=== PATIENT | female | born 1940 | race African-American/Black ===

== ENCOUNTER → 2018-01-02 | Outpatient (CLI) | payer OTHER ==
--- NOTE | 2018-01-02 13:21 | RAD ---
Left shoulder, 3 views, 01/02/2018: History: Shoulder pain after a fall No recent fracture or dislocation is identified. There is mild spurring along the glenoid rim and at the AC joint. There is mild subacromial spurring. A small soft tissue calcification along the lateral margin of the greater tuberosity is probably of tendinous origin. IMPRESSION: 1. Degenerative change. 2. No acute bony abnormality is detected.
== END | disposition home or self-care (01) ==
LOC: PMG 11:54
PROVIDERS: ATTEND Nurse Practitioner Family
DX: M19.012 Primary osteoarthritis, left shoulder (principal); Z91.81 History of falling
CPT/HCPCS: 73030

== ENCOUNTER → 2019-01-06 | Outpatient (CLI) | payer MEDICARE ==
[~2019-01-06] MED LIST: AMIO200T4 PO; CARV6.253 PO; ESCI10TA2 PO; LISI10TA2 PO; LISI40TA PO; ONDA4TAB7 PO; PANT20TA3 PO; ROSU40TA21 PO; SIMV20TA3 PO; TICA90TA PO
--- NOTE | 2019-01-06 13:07 | RAD ---
Chest radiograph 01/06/2019 12:00 AM INDICATION: Chest pain, shortness of air COMPARISON: None available TECHNIQUE: Frontal and lateral views of the chest are provided. FINDINGS: The cardiomediastinal silhouette is borderline enlarged. There are no pleural effusions. There is no pulmonary vascular congestion. There is no pneumothorax. The lungs are clear. There is pulmonary emphysema. No focal airspace consolidation. No significant osseous abnormality is identified. IMPRESSION: Borderline cardiomegaly. COPD changes are present. No focal airspace consolidation. Electronically signed by: Aria Santos MD (01/06/2019 1:04 PM) [id number]
== END | disposition home or self-care (01) ==
LOC: RAD 12:50
PROVIDERS: ATTEND Physician Assistant
DX: J43.8 Other emphysema (principal)
CPT/HCPCS: 71046

== ENCOUNTER 2019-03-05 11:24 | Emergency (ER) | payer MEDICARE ==
[~2019-03-05] VITALS: Ht 165.1 cm; Wt 84.7 kg
[2019-03-05] MEDS ORDERED: IV NORMAL SALINE 1,000ML 1,000 ML IV SCH (11:31)
--- NOTE | 2019-03-05 11:36 | PHYS DOC ---
Past History Past Medical History: CAD, Cancer Past Surgical History: Other Additional Past Surgical Histo: cardiac stent Smoking: Non-smoker Alcohol Use: None Drug Use: None Adult General HPI HPI Patient is a 78-year-old female who presents with nausea and vomiting and upper abdominal pain for the past month. In the past month, patient has undergone at least 2 cardiac stenting procedures at [facility]. She was being seen by a physician upstairs in the office for this nausea and vomiting, it was noted that her blood pressure was in the 70s systolic. She was therefore sent down for further evaluation and treatment. Nothing seems to make the discomfort better or worse. She reports that the upper abdominal discomfort is the same discomfort as was present when she needed the cardiac stents. She denies any blood in the stool or emesis. Symptoms are moderate in intensity. She was recently diagnosed with breast cancer, has not started chemotherapy or radiation treatment.[] Review of Systems Review of Systems Constitutional: Denies fever or chills [] Eyes: Denies change in visual acuity, redness, or eye pain [] HENT: Denies nasal congestion or sore throat [] Respiratory: Denies cough or shortness of breath [] Cardiovascular: No additional information not addressed in HPI [] GI: See history of present illness[] : Denies dysuria or hematuria [] Musculoskeletal: Denies back pain or joint pain [] Integument: Denies rash or skin lesions [] Neurologic: Denies headache, focal weakness or sensory changes [] Endocrine: Denies polyuria or polydipsia [] All other systems were reviewed and found to be within normal limits, except as documented in this note. Physical Exam Physical Exam Constitutional: Well developed, well nourished, no acute distress, non-toxic a ppearance. [] HENT: Normocephalic, atraumatic, bilateral external ears normal, oropharynx moist, no oral exudates, nose normal. [] Eyes: PERRLA, EOMI, conjunctiva normal, no discharge. [] Neck: Normal range of motion, no tenderness, supple, no stridor. [] Cardiovascular:Heart rate regular rhythm, no murmur [] Lungs & Thorax: Bilateral breath sounds clear to auscultation [] Abdomen: Bowel sounds normal, soft, no tenderness, no masses, no pulsatile masses. [] Skin: Warm, dry, no erythema, no rash. [] Back: No tenderness, no CVA tenderness. [] Extremities: No tenderness, no cyanosis, no clubbing, ROM intact, no edema. [] Neurologic: Alert and oriented X 3, normal motor function, normal sensory function, no focal deficits noted. [] Psychologic: Affect normal, judgement normal, mood normal. [] EKG EKG EKG shows an irregular rhythm, no ST elevation. Rightward axis, QTC of 475 ms. No old EKG available for comparison. Interpreted by me at 1138 Repeat EKG showed a regular rhythm without any P-wave, left axis deviation, left anterior fascicular block along with a right bundle branch block, QTC was 519 ms. This was interpreted by me at 1225[] Radiology/Procedures Radiology/Procedures PROCEDURE: PORTABLE CHEST 1V Portable chest, 03/05/2019: HISTORY: Abdominal pain, coronary artery disease Comparison is made to a study from 01/06/2019. The heart is moderately enlarged. A coronary artery stent is projected over the upper heart on the left. Mild discoid atelectasis is present in the left parahilar region. Poor definition of portions of the left hemidiaphragm is probably due to the portable technique. No right lung infiltrate is seen. The pulmonary vascularity is normal. There is no evidence of pleural fluid. IMPRESSION: 1. Cardiomegaly. 2. Mild discoid atelectasis in the left midlung. PROCEDURE: KUB Portable abdomen, 03/05/2019: HISTORY: Abdominal pain, recent coronary artery stenting The abdominal gas pattern is unremarkable. There is no evidence of organomegaly. Lower pelvic calcifications are probably phleboliths. There are moderate scattered degenerative changes in the spine. IMPRESSION: No acute abdominal abnormality is detected.[] Course & Med Decision Making Course & Med Decision Making Pertinent Labs and Imaging studies reviewed. (See chart for details) ED course: Patient arrived, was placed in bed, and tolerated exam well. Patient's initial blood pressure for us was in the 120 systolic which decreased to the 100s. She was given IV fluids which again improved her blood pressure to the 140s systolic but dropped again to 114/78 as the IV fluids equilibrated. Her heart rate has remained in the 60s during this entire time. She was noted to have change in her ECG monitor with a widening of the QRS complex. Repeat EKG was obtained as noted above. Initial consultation was made with the hospitalist here at [facility] who felt that she would need higher level of care, cardiology services given her recent stenting. Contact was made with Dr. arana and Evans group out of [facility] who graciously accepted the patient. Family however, would be unable to get to and from [facility] and so consultation was again made with the hospitalist here at [facility] who accepted the patient for admission at [place]. Family is aware that it would be a different cardiology group evaluating patient. All patient's questions and family questions were answered. She was transferred in improved condition. Medical decision makin-year-old female with history of atrial fibrillation who is on apixaban, who also is having an intermittent bifascicular block on EKG/rhythm monitoring that is not mentioned on discussion with the cardiology group from [facility]. Patient has not had the profound hypotension that was noted in the family practice office upstairs. However her blood pressure does decrease when fluid boluses are complete. Currently waiting for a urinalysis given her recent admission. No other source of infection is identified at this time. Question If this is all due to infection. versus what components of this being a primary cardiology versus GI issue. There is no evidence of this being pancreatitis. No evidence of an obstruction. She is being admitted for further IV fluids and further evaluation[] Dragon Disclaimer Dragon Disclaimer This electronic medical record was generated, in whole or in part, using a voice recognition dictation system. Departure Departure: Impression: Primary Impression: Hypotensive episode Additional Impressions: Nausea and vomiting Atrial fibrillation Bifascicular block Coronary artery disease UTI (urinary tract infection) Disposition: 05 TRANSFER OTHER Admitting Physician: Ramy Almanza Condition: IMPROVED Referrals: KEO RIVAS (PCP) Problem Qualifiers Additional Impressions: Nausea and vomiting Vomiting type: unspecified Vomiting Intractability: non-intractable Qualified Codes: R11.2 - Nausea with vomiting, unspecified Atrial fibrillation Atrial fibrillation type: unspecified Qualified Codes: I48.91 - Unspecified atrial fibrillation Coronary artery disease Coronary Disease-Associated Artery/Lesion type: unspecified vessel or lesion type [place] vs. transplanted heart: [place] heart Associated angina: angina presence unspecified Qualified Codes: I25.10 - Atherosclerotic heart disease of [place] coronary artery without angina pectoris UTI (urinary tract infection) Urinary tract infection type: site unspecified Hematuria presence: with hematuria Qualified Codes: N39.0 - Urinary tract infection, site not specified; R31.9 - Hematuria, unspecified KALPESH YA DO March 05, 2019 11:36
[2019-03-05 11:46] LABS: BASO # 0.1 x10^3/uL (0.0-0.2); BASO % 1 % (0-3); EOS # 0.1 x10^3/uL (0.0-0.7); EOS % 2 % (0-3); HEMATOCRIT 40.4 % (36.0-47.0); HEMOGLOBIN 13.1 g/dL (12.0-15.5); LYMPH # 1.7 x10^3/uL (1.0-4.8); LYMPH % 21 % (24-48); MEAN CORPUSCULAR HEMOGLOBIN 27 pg (25-35); MEAN CORPUSCULAR HGB CONC 33 g/dL (31-37); MEAN CORPUSCULAR VOLUME 82 fL (79-100); MONO % 13 % (0-9); NEUT % 63 % (31-73); PLATELET COUNT 417 x10^3/uL (140-400); RED BLOOD COUNT 4.95 x10^6/uL (3.50-5.40); RED CELL DISTRIBUTION WIDTH 13.8 % (11.5-14.5); WHITE BLOOD COUNT 7.8 x10^3/uL (4.0-11.0)
[2019-03-05] MEDS ORDERED: ONDANSETRON PF 4 MG/2 ML VIAL. IV ONE (12:00)
[2019-03-05 12:08] LABS: ALBUMIN/GLOBULIN RATIO 0.6 (1.0-1.7); CALCIUM 9.5 mg/dL (8.5-10.1); CREATININE 1.3 mg/dL (0.6-1.0); GFR 47.8; POTASSIUM 3.6 mmol/L (3.5-5.1); TOTAL BILIRUBIN 1.1 mg/dL (0.2-1.0); TOTAL PROTEIN 7.7 g/dL (6.4-8.2)
--- NOTE | 2019-03-05 12:09 | RAD ---
Portable chest, 03/05/2019: HISTORY: Abdominal pain, coronary artery disease Comparison is made to a study from 01/06/2019. The heart is moderately enlarged. A coronary artery stent is projected over the upper heart on the left. Mild discoid atelectasis is present in the left parahilar region. Poor definition of portions of the left hemidiaphragm is probably due to the portable technique. No right lung infiltrate is seen. The pulmonary vascularity is normal. There is no evidence of pleural fluid. IMPRESSION: 1. Cardiomegaly. 2. Mild discoid atelectasis in the left midlung. Electronically signed by: Jef Marroquin MD (03/05/2019 12:06 PM) [facility]
--- NOTE | 2019-03-05 12:10 | RAD ---
Portable abdomen, 03/05/2019: HISTORY: Abdominal pain, recent coronary artery stenting The abdominal gas pattern is unremarkable. There is no evidence of organomegaly. Lower pelvic calcifications are probably phleboliths. There are moderate scattered degenerative changes in the spine. IMPRESSION: No acute abdominal abnormality is detected. Electronically signed by: Jef Marroquin MD (03/05/2019 12:07 PM) [facility]
--- NOTE | 2019-03-05 12:27 | EKG ---
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
[2019-03-05] MEDS ORDERED: IV NORMAL SALINE 1,000ML 1,000 ML IV ONE (13:45)
[2019-03-05 14:31] LABS: COLOR,URINE AMBER
[2019-03-05 14:32] LABS: AMORPHOUS SEDIMENT,UR PRESENT /HPF; BACTERIA,URINE MANY /HPF (0-FEW); BILIRUBIN,URINE NEG (NEG); CLARITY,URINE CLOUDY; GLUCOSE,URINE NEG (NEG); NITRITE,URINE NEG (NEG); SQUAMOUS EPITHELIAL CELL,UR FEW /LPF; UROBILINOGEN,URINE 4 mg/dL (0.2 mg/dL)
[2019-03-05] MEDS ORDERED: IV NORMAL SALINE 50ML 50 ML ONE (14:52)
[2019-03-05] MEDS ORDERED: cefTRIAXone SODIUM 1 GM VIAL ONE (14:52)
[2019-03-05 14:53] VITALS: BP 120/77
--- NOTE | 2019-03-08 06:35 | EKG ---
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
[2019-03-11] MEDS ORDERED: AMIO200T4 PO (14:52)
[2019-03-11] MEDS ORDERED: ONDA4TAB7 PO (15:00)
== END 2019-03-05 15:13 | disposition short-term general hospital (02) ==
LOC: ER 11:24
DX: N39.0 Urinary tract infection, site not specified (principal); I45.2 Bifascicular block; I48.91 Unspecified atrial fibrillation; I25.10 Atherosclerotic heart disease of native coronary artery without angina pectoris; I95.9 Hypotension, unspecified; R11.2 Nausea with vomiting, unspecified; I51.7 Cardiomegaly; Z95.811 Presence of heart assist device
CPT/HCPCS: 36415; 71045; 74018; 80053; 81001; 83690; 83880; 84484; 85025; 85610; 85730; 87040; 87086; 93005; 96361; 96365; 99285; J0696; 87186; J7030

== ENCOUNTER 2019-03-08 23:26 | Inpatient (IN) | payer MEDICARE ==
[~2019-03-08] VITALS: Ht 165.1 cm; Wt 80.4 kg
--- NOTE | 2019-03-08 23:32 | ED.ADGEN ---
Past History Past Medical History: CAD, Cancer, Constipation, UTI Past Surgical History: Other Additional Past Surgical Histo: cardiac stent Smoking: Non-smoker Alcohol Use: None Drug Use: None Adult General Chief Complaint Chief Complaint ".. I was here the other day.. and had abdomen pain.. and UTI.. .I got treated here... and then transfer to [place]... and I got discharged there... .. but I am still sick.. and nauseated.. "..." My upper abdomen hurts.. my lower abd. hurts.. I just hurt..." HPI HPI Patient is a 78 year old female who presents with above hx and complaints of abdomen pain. Pt. states she not currently on an antibiotic for her UTI and she having increased pain and nausea. Pt. denies intake bad food, travel, trauma or specific ill contacts. Pt. recently admitted and discharge on 03/05 for Hypotension, N/V and UTI. Pt. has hx of Cardiac Stents x2 at [facility]. Pt. recently diagnosis of Breast CA but has not started chemotherapy and or radiation per pt. hx. Pt. Hx. of Afib., Bifascicular Block, CADz, with Stents. Pt. Pt. follows with Dr. Hinton. Review of Systems Review of Systems Poor Historian Constitutional: Denies fever or chills [] Eyes: Denies change in visual acuity, redness, or eye pain [] HENT: Denies nasal congestion or sore throat [] Respiratory: Denies cough or shortness of breath [] Cardiovascular: No additional information not addressed in HPI [] GI: Complaints of epigastric and lower abdominal pain, nausea, . Denies vomiting, bloody stools or diarrhea [] : Denies dysuria or hematuria [] Musculoskeletal: Denies back pain or joint pain [] Integument: Denies rash or skin lesions [] Neurologic: Denies headache, focal weakness or sensory changes [] Endocrine: Denies polyuria or polydipsia [] All other systems were reviewed and found to be within normal limits, except as documented in this note. Family History Family History Diabetes and hypertension Current Medications Current Medications Current Medications Medications (Trade) Dose Ordered Sig/Daquan Start Time Stop Time Status Last Admin Dose Admin Famotidine (Pepcid Vial) 20 mg 1X ONCE 03/09/19 00:00 03/09/19 00:01 DC 03/09/19 00:05 20 MG Lactated Ringer's 1,000 ml @ 1,000 mls/hr 1X ONCE 03/09/19 02:30 03/09/19 03:29 DC 03/09/19 05:00 1,000 MLS/HR Magnesium Hydroxide (Milk Of Magnesia) 2,400 mg 1X ONCE 03/09/19 01:00 03/09/19 01:01 DC 03/09/19 01:02 2,400 MG Morphine Sulfate (Morphine 10mg Syringe) 10 mg 1X ONCE 03/09/19 00:00 03/09/19 00:01 DC 03/09/19 00:04 10 MG Ondansetron HCl (Zofran) 8 mg 1X ONCE 03/09/19 00:00 03/09/19 00:01 DC 03/09/19 00:04 8 MG See Nursing for home meds. Allergies Allergies NKDA Physical Exam Physical Exam Constitutional: moderately acute distress, non-toxic appearance. [] HENT: Normocephalic, atraumatic, bilateral external ears normal, oropharynx moist, no oral exudates, nose normal. [] Eyes: PERRLA, EOMI, conjunctiva normal, no discharge. [] Neck: Normal range of motion, no tenderness, supple, no stridor. [] Cardiovascular:Heart rate regular rhythm, no murmur [] Lungs & Thorax: Bilateral breath sounds clear to auscultation [] Abdomen: Bowel sounds normal, soft, mild upper epigastric, marked lower abd. tenderness, no masses, no pulsatile masses. Distended. Distended bladder. Mild rebound to lower abdomen. Old surgery scars. Skin: Warm, dry, no erythema, no rash. [] Back: No tenderness, no CVA tenderness. [] Extremities: No tenderness, no cyanosis, no clubbing, ROM intact, ankle edema. [] Neurologic: Alert and oriented X 3, moves all extremities on request. Does have distal sensory,no focal deficits noted. []Poor historian Psychologic: Affect anxious mood normal. [] Current Patient Data Vital Signs Vital Signs Date Time Temp Pulse Resp B/P (MAP) Pulse Ox O2 Delivery O2 Flow Rate FiO2 03/09/19 02:00 59 18 112/75 (87) 94 Room Air 03/08/19 23:30 97.6 Lab Results Laboratory Tests Test 03/08/19 23:49 White Blood Count 8.2 x10^3/uL (4.0-11.0) Red Blood Count 4.83 x10^6/uL (3.50-5.40) Hemoglobin 12.6 g/dL (12.0-15.5) Hematocrit 39.3 % (36.0-47.0) Mean Corpuscular Volume 81 fL (79-100) Mean Corpuscular Hemoglobin 26 pg (25-35) Mean Corpuscular Hemoglobin Concent 32 g/dL (31-37) Red Cell Distribution Width 14.2 % (11.5-14.5) Platelet Count 355 x10^3/uL (140-400) Neutrophils (%) (Auto) 58 % (31-73) Lymphocytes (%) (Auto) 28 % (24-48) Monocytes (%) (Auto) 11 % (0-9) H Eosinophils (%) (Auto) 2 % (0-3) Basophils (%) (Auto) 1 % (0-3) Neutrophils # (Auto) 4.8 x10^3uL (1.8-7.7) Lymphocytes # (Auto) 2.3 x10^3/uL (1.0-4.8) Monocytes # (Auto) 0.9 x10^3/uL (0.0-1.1) Eosinophils # (Auto) 0.2 x10^3/uL (0.0-0.7) Basophils # (Auto) 0.1 x10^3/uL (0.0-0.2) Erythrocyte Sedimentation Rate 48 (0-25) H Prothrombin Time 12.7 SEC (9.4-11.4) H Prothrombin Time INR 1.3 (0.9-1.1) H PTT 31 SEC (23-33) Sodium Level 141 mmol/L (136-145) Potassium Level 3.2 mmol/L (3.5-5.1) L Chloride Level 104 mmol/L (98-107) Carbon Dioxide Level 25 mmol/L (21-32) Anion Gap 12 (6-14) Blood Urea Nitrogen 10 mg/dL (7-20) Creatinine 1.1 mg/dL (0.6-1.0) H Estimated GFR (Cockcroft-Gault) 58.0 Glucose Level 127 mg/dL (70-99) H Calcium Level 9.3 mg/dL (8.5-10.1) Total Bilirubin 0.8 mg/dL (0.2-1.0) Direct Bilirubin 0.2 mg/dL (0.0-0.2) Aspartate Amino Transferase (AST) 21 U/L (15-37) Alanine Aminotransferase (ALT) 32 U/L (14-59) Alkaline Phosphatase 119 U/L (46-116) H Creatine Kinase 75 U/L (26-192) Troponin I Quantitative 0.020 ng/mL (0-0.055) Total Protein 7.5 g/dL (6.4-8.2) Albumin 3.3 g/dL (3.4-5.0) L Amylase Level 82 U/L (25-115) Lipase 207 U/L (73-393) EKG EKG My interpretation of EKG shows sinus 80, contour changes, mild Bifascicular block, [] Radiology/Procedures Radiology/Procedures My interpretation of acute abdomen film shows chest component with atelectasis and cardiomegaly. Degenerative joint changes. Increased stool throughout. Appears to have a distended bladder. [] Course & Med Decision Making Course & Med Decision Making Pertinent Labs and Imaging studies reviewed. (See chart for details) Daughter at bedside very angry delay in labs. Pt. daughter request survey to complain to about delay in labs. Post void UA >800 cc. Pt. reports decrease pain after Pa cath. CT results pending at time of admit. Appears to have some Adenopathy. No obvious acute surgical pathology. Will start on Lovenox since does not appears to have an acute surgical pathology in the abdomen. Will order US legs and arms. Consider CT Chest PE once hydrated. Discussed presentation, testing and tx. plan with Dr. Almanza. Admit to Dr. Almanza for further eval. and tx. [] Final Impression Final Impression 1. Abdomen Pain[] 2. Hypokalemia 3.2 3. DM 127 4. Elevated ESR\\ 48 5. Hx. UTI 6. Constipation 7. Urinary Retention -1200 cc post void 8. Hx. CADz Stents x 2 9. Hx Breast CA 10. Elevated D-dimer 12.89 Dragon Disclaimer Dragon Disclaimer This electronic medical record was generated, in whole or in part, using a voice recognition dictation system. Discharge Summary Visit Information Final Diagnosis Problems Medical Problems: (1) Pain in the abdomen Status: Acute (2) Pain of upper abdomen Status: Acute Brief Hospital Course Vital Signs Vital Signs Date Time Temp Pulse Resp B/P (MAP) Pulse Ox O2 Delivery O2 Flow Rate FiO2 03/09/19 02:00 59 18 112/75 (87) 94 Room Air 03/08/19 23:30 97.6 Lab Results Laboratory Tests Test 03/08/19 23:49 White Blood Count 8.2 x10^3/uL (4.0-11.0) Red Blood Count 4.83 x10^6/uL (3.50-5.40) Hemoglobin 12.6 g/dL (12.0-15.5) Hematocrit 39.3 % (36.0-47.0) Mean Corpuscular Volume 81 fL (79-100) Mean Corpuscular Hemoglobin 26 pg (25-35) Mean Corpuscular Hemoglobin Concent 32 g/dL (31-37) Red Cell Distribution Width 14.2 % (11.5-14.5) Platelet Count 355 x10^3/uL (140-400) Neutrophils (%) (Auto) 58 % (31-73) Lymphocytes (%) (Auto) 28 % (24-48) Monocytes (%) (Auto) 11 % (0-9) Eosinophils (%) (Auto) 2 % (0-3) Basophils (%) (Auto) 1 % (0-3) Neutrophils # (Auto) 4.8 x10^3uL (1.8-7.7) Lymphocytes # (Auto) 2.3 x10^3/uL (1.0-4.8) Monocytes # (Auto) 0.9 x10^3/uL (0.0-1.1) Eosinophils # (Auto) 0.2 x10^3/uL (0.0-0.7) Basophils # (Auto) 0.1 x10^3/uL (0.0-0.2) Erythrocyte Sedimentation Rate 48 (0-25) Prothrombin Time 12.7 SEC (9.4-11.4) Prothromb Time International Ratio 1.3 (0.9-1.1) Activated Partial Thromboplast Time 31 SEC (23-33) Sodium Level 141 mmol/L (136-145) Potassium Level 3.2 mmol/L (3.5-5.1) Chloride Level 104 mmol/L (98-107) Carbon Dioxide Level 25 mmol/L (21-32) Anion Gap 12 (6-14) Blood Urea Nitrogen 10 mg/dL (7-20) Creatinine 1.1 mg/dL (0.6-1.0) Estimated GFR (Cockcroft-Gault) 58.0 Glucose Level 127 mg/dL (70-99) Calcium Level 9.3 mg/dL (8.5-10.1) Total Bilirubin 0.8 mg/dL (0.2-1.0) Direct Bilirubin 0.2 mg/dL (0.0-0.2) Aspartate Amino Transf (AST/SGOT) 21 U/L (15-37) Alanine Aminotransferase (ALT/SGPT) 32 U/L (14-59) Alkaline Phosphatase 119 U/L (46-116) Creatine Kinase 75 U/L (26-192) Troponin I Quantitative 0.020 ng/mL (0-0.055) Total Protein 7.5 g/dL (6.4-8.2) Albumin 3.3 g/dL (3.4-5.0) Amylase Level 82 U/L (25-115) Lipase 207 U/L (73-393) Brief Hospital Course Ms. Nunez is a 78 old female who presented with abdomen pain. Constipation, Urinary retention. Admit Dr. Almanza. Discharge Information Condition at Discharge: Improved Dischare Medications Current Medications Lactated Ringer's 1,000 ml @ 1,000 mls/hr Q1H IV Last administered on 03/09/19at 00:04; Admin Dose 1,000 MLS/HR; Start 03/09/19 at 00:00; Stop 03/09/19 at 00:59; Status DC Ondansetron HCl (Zofran) 8 mg 1X ONCE IV Last administered on 03/09/19at 00:04; Admin Dose 8 MG; Start 03/09/19 at 00:00; Stop 03/09/19 at 00:01; Status DC Famotidine (Pepcid Vial) 20 mg 1X ONCE IVP Last administered on 03/09/19at 00:05; Admin Dose 20 MG; Start 03/09/19 at 00:00; Stop 03/09/19 at 00:01; Status DC Morphine Sulfate (Morphine 10mg Syringe) 10 mg 1X ONCE SQ Last administered on 03/09/19at 00:04; Admin Dose 10 MG; Start 03/09/19 at 00:00; Stop 03/09/19 at 00:01; Status DC Magnesium Hydroxide (Milk Of Magnesia) 2,400 mg 1X ONCE PO Last administered on 03/09/19at 01:02; Admin Dose 2,400 MG; Start 03/09/19 at 01:00; Stop 03/09/19 at 01:01; Status DC Lactated Ringer's 1,000 ml @ 1,000 mls/hr 1X ONCE IV Last administered on 03/09/19at 05:00; Admin Dose 1,000 MLS/HR; Start 03/09/19 at 02:30; Stop 03/09/19 at 03:29; Status DC Active Scripts Active Reported Simvastatin 20 Mg Tablet 20 Mg PO HS LAST DOSE GIVEN: DATE: TIME: NEXT DOSE DUE: DATE: TIME: Lisinopril 10 Mg Tablet 10 Mg PO DAILY LAST DOSE GIVEN: DATE: TIME: NEXT DOSE DUE: DATE: TIME: Brilinta (Ticagrelor) 90 Mg Tablet 90 Mg PO BID LAST DOSE GIVEN: DATE: TIME: NEXT DOSE DUE: DATE: TIME: Pantoprazole Sodium 20 Mg Tablet.dr 40 Mg PO DAILY LAST DOSE GIVEN: DATE: TIME: NEXT DOSE DUE: DATE: TIME: Rosuvastatin Calcium 40 Mg Tablet 40 Mg PO HS LAST DOSE GIVEN: DATE: TIME: NEXT DOSE DUE: DATE: TIME: Dragon Disclaimer This chart was dictated in whole or in part using Voice Recognition software in a busy, high-work load, and often noisy Emergency Department environment. It may contain unintended and wholly unrecognized errors or omissions. LUIS REY MD March 08, 2019 23:32
[2019-03-09] MEDS ORDERED: MORPHINE SULFATE 10 MG/ML SYRINGE. SQ ONE
[2019-03-09] MEDS ORDERED: FAMOTIDINE 20 MG/2 ML VIAL IVP ONE
[2019-03-09] MEDS ORDERED: IV RINGERS SOLUTION,LACTATED 1,000 ML IV SCH
[2019-03-09 00:26] LABS: BASO # 0.1 x10^3/uL (0.0-0.2); BASO % 1 % (0-3); EOS # 0.2 x10^3/uL (0.0-0.7); EOS % 2 % (0-3); HEMATOCRIT 39.3 % (36.0-47.0); HEMOGLOBIN 12.6 g/dL (12.0-15.5); LYMPH # 2.3 x10^3/uL (1.0-4.8); LYMPH % 28 % (24-48); MEAN CORPUSCULAR HEMOGLOBIN 26 pg (25-35); MEAN CORPUSCULAR HGB CONC 32 g/dL (31-37); MEAN CORPUSCULAR VOLUME 81 fL (79-100); MONO # 0.9 x10^3/uL (0.0-1.1); MONO % 11 % (0-9); NEUT # 4.8 x10^3uL (1.8-7.7); NEUT % 58 % (31-73); PLATELET COUNT 355 x10^3/uL (140-400); RED BLOOD COUNT 4.83 x10^6/uL (3.50-5.40); RED CELL DISTRIBUTION WIDTH 14.2 % (11.5-14.5); WHITE BLOOD COUNT 8.2 x10^3/uL (4.0-11.0)
[2019-03-09] MEDS ORDERED: MAGNESIUM HYDROXIDE 2,400 MG/30 ML ORAL.SUSP. PO ONE (01:00)
[2019-03-09 01:15] LABS: ALBUMIN 3.3 g/dL (3.4-5.0); CALCIUM 9.3 mg/dL (8.5-10.1); CREATININE 1.1 mg/dL (0.6-1.0); DIRECT BILIRUBIN 0.2 mg/dL (0.0-0.2); POTASSIUM 3.2 mmol/L (3.5-5.1); TOTAL BILIRUBIN 0.8 mg/dL (0.2-1.0); TOTAL PROTEIN 7.5 g/dL (6.4-8.2)
[2019-03-09] MEDS ORDERED: IV RINGERS SOLUTION,LACTATED 1,000 ML IV ONE (02:30)
[2019-03-09] MEDS ORDERED: CONTRAST GIVEN MC PRN (03:45)
[2019-03-09] MEDS ORDERED: IOHEXOL 240 MG/ML 50ML VIAL. PO ONE (04:00)
[2019-03-09] MEDS ORDERED: IOHEXOL 300 MG/ML 75 ML VIAL. IV ONE (04:00)
[2019-03-09 04:11] LABS: BARBITURATES NEG (NEG); BENZODIAZEPINES NEG (NEG); CANNABINOIDS NEG (NEG); COCAINE NEG (NEG); METHADONE NEG (NEG); OPIATES POS (NEG); PHENCYCLIDINE NEG (NEG)
[2019-03-09 04:13] LABS: AMPHETAMINE/METHAMPHETAMINE NEG (NEG)
[2019-03-09 04:25] LABS: BACTERIA,URINE MANY /HPF (0-FEW); BILIRUBIN,URINE NEG (NEG); CLARITY,URINE HAZY; COLOR,URINE YELLOW; GLUCOSE,URINE NEG (NEG); NITRITE,URINE NEG (NEG); RBC,URINE 0 /HPF (0-2); UROBILINOGEN,URINE 0.2 mg/dL (0.2 mg/dL)
[2019-03-09] MEDS ORDERED: ONDANSETRON PF 4 MG/2 ML VIAL. IV ONE ×2 (04:30)
[2019-03-09] MEDS ORDERED: TICA90TA PO (04:32)
[2019-03-09] MEDS ORDERED: LISI40TA PO (04:32)
[2019-03-09] MEDS ORDERED: PANT20TA3 PO (04:32)
[2019-03-09] MEDS ORDERED: AMIO200T4 PO (04:32)
[2019-03-09] MEDS ORDERED: CARV6.253 PO (04:32)
[2019-03-09] MEDS ORDERED: ESCI10TA2 PO (04:32)
[2019-03-09] MEDS ORDERED: ROSU40TA21 PO (04:32)
--- NOTE | 2019-03-09 04:45 | NUR ---
Pt admitted from ER to [facility] room 109 via [facility], accompanied by EMS & nursing staff. Pt transferred from [facility] to bed x3 assist. Admission assessment completed. VSS. Pt recently DCd from [facility] for abd. pain and hypotension. Pt stated that she has not had a BM for 3-4 days now and has c/o lower abd pain. Pt with 16F Pa catheter in place r/t 800ml of UR in ER. Blood cx done and will have a BLE US in AM. Health history & home medications reviewed with pt. SCDs for VTE. Pt lives at home with daughter. Pt currently NPO r/t abd pain and N/V. Call light within reach.
[2019-03-09 05:10] VITALS: BP 154/80
--- NOTE | 2019-03-09 05:20 | RAD ---
PQRS Compliance statement: One or more of the following individualized dose reduction techniques were utilized for this examination: 1. Automated exposure control. 2. Adjustment of the mA and/or kV according to patient size. 3. Use of iterative reconstruction technique. Indication:Abdominal pain. TECHNIQUE: CT abdomen and pelvis with IV contrast with multiplanar reformats. COMPARISON: None FINDINGS: Heart is moderately enlarged in size. Trace left pleural effusion. Subsegmental atelectasis in the left lung base. Couple of too small to characterize low attenuating lesions in the liver seen. Spleen, gallbladder, pancreas, adrenals within normal limits. Nonobstructing 3 mm stone in the left kidney. Simple cyst in the left kidney measuring 3 cm. Enlarged right external iliac chain lymph node measuring 1.6 x 1.4 cm. Enlarged left external iliac lymph node measuring 1.4 x 1.0 cm. Shotty retroperitoneal lymph nodes. No free pelvic fluid or ascites. No bowel obstruction. Status post hysterectomy. Urinary bladder is decompressed with Pa catheter. No pneumoperitoneum. No suspicious bony lesion. 3.3 x 2.5 cm right gluteus minimus musculature hematoma. IMPRESSION: 1. Mildly enlarged bilateral external iliac lymph nodes, nonspecific may be reactive or metastatic. Short-term follow-up recommended in 3 months. 2. Scattered couple of low attenuating too small to characterize liver lesions likely simple cysts. Attention on follow-up. 3. Nonobstructing left renal stone. Electronically signed by: Chris Sadler DO (03/09/2019 5:17 AM) [facility]
[2019-03-09] MEDS: IV RINGERS SOLUTION,LACTATED 1,000 ML IV SCH ×2 (05:48→10:08)
[2019-03-09] MEDS ORDERED: LISI10TA2 PO (05:59)
[2019-03-09] MEDS ORDERED: SIMV20TA3 PO (06:01)
[2019-03-09] MEDS: ONDANSETRON PF 4 MG/2 ML VIAL. IV PRN ×2 (06:14→11:30)
--- NOTE | 2019-03-09 06:14 | RAD ---
Indication:Pain nausea vomiting TECHNIQUE:Portable AP chest X-ray and 2 views of the abdomen and pelvis COMPARISON: None FINDINGS: Heart is normal in size. Lungs are clear. No pneumothorax or effusion. Visualized bony thorax within normal limits. No pneumoperitoneum. No abnormally dilated bowel loops or air-fluid levels. Nonobstructing calcification in the left kidney. Visualized bones are within normal limits. IMPRESSION: No high-grade bowel obstruction. Nonobstructing left renal stone. Electronically signed by: Chris Sadler DO (03/09/2019 6:11 AM) [facility]
[2019-03-09] MEDS ORDERED: ANTI-COAG MONITOR BY PHARMACY. MC PRN (06:30)
[2019-03-09] MEDS ORDERED: ENOXAPARIN ** NOTE DOSE ** SYRINGE SQ SCH (07:00)
[2019-03-09] MEDS ORDERED: IPRATRPIUM/ALBUTEROL 0.5/2.5MG 3 ML NEBU. NEB SCH (08:00)
--- NOTE | 2019-03-09 08:15 | EKG ---
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
[2019-03-09 10:51] VITALS: BP 148/81
[2019-03-09 12:30] LABS: BASO % 1 % (0-3); EOS # 0.2 x10^3/uL (0.0-0.7); EOS % 3 % (0-3); HEMATOCRIT 35.7 % (36.0-47.0); HEMOGLOBIN 11.6 g/dL (12.0-15.5); LYMPH # 1.8 x10^3/uL (1.0-4.8); LYMPH % 32 % (24-48); MEAN CORPUSCULAR HEMOGLOBIN 27 pg (25-35); MEAN CORPUSCULAR HGB CONC 33 g/dL (31-37); MEAN CORPUSCULAR VOLUME 82 fL (79-100); MONO # 0.6 x10^3/uL (0.0-1.1); MONO % 11 % (0-9); NEUT % 53 % (31-73); PLATELET COUNT 321 x10^3/uL (140-400); RED BLOOD COUNT 4.38 x10^6/uL (3.50-5.40); RED CELL DISTRIBUTION WIDTH 14.1 % (11.5-14.5); WHITE BLOOD COUNT 5.7 x10^3/uL (4.0-11.0)
[2019-03-09] MEDS: POTASSIUM CL 40MEQ D5-0.45NACL 1,000 ML IV SCH (12:36)
[2019-03-09 12:39] LABS: ALBUMIN 2.9 g/dL (3.4-5.0); ALBUMIN/GLOBULIN RATIO 0.8 (1.0-1.7); CALCIUM 8.8 mg/dL (8.5-10.1); GFR 64.7; POTASSIUM 3.2 mmol/L (3.5-5.1); TOTAL BILIRUBIN 0.8 mg/dL (0.2-1.0); TOTAL PROTEIN 6.6 g/dL (6.4-8.2)
--- NOTE | 2019-03-09 12:44 | HP ---
ADMIT DATE: 03/09/2019 HISTORY OF PRESENT ILLNESS: The patient is a 78-year-old -[place] Citizen female patient, who was discharged from [facility] only recently where she actually presented to the Emergency Room with recurrent bouts of nausea, vomiting, abdominal pain. It has subsided by the time she arrived to the [facility] to a physician that she might have bifascicular block and she was seen in consultation by the Cardiology team. It transpired that she was in junctional rhythm and her Coreg was discontinued, her amiodarone was cut down to 200 mg once a day and was discharged to have an outpatient heart monitor that will be mailed to her from the Cardiology office. She apparently did well for 2 days and then she started complaining again of abdominal pain. Her pain is mostly around her umbilical area associated with nausea and vomiting. The pain does not radiate to the back. Denied any chills, rigors or fever. She has not had any bowel movement for the last 4 days, but she is passing gas without difficulty. She was extensively investigated in the Emergency Room. Her lab work which showed normal white cell count. Her coagulation studies showed D-dimer to be extremely high at 12.89. Her chemistry was mostly unremarkable. Urinalysis showed the urine was yellow, hazy with a pH of 7.5 with specific gravity of 1.015. There was small trace of protein, trace of blood, negative for nitrite, negative for leukocyte esterase. There are no rbc's, 1-4 wbc's, and too many bacteria. Her toxic screen was positive for obviate. CT scan of the abdomen and pelvis with oral and IV contrast, which showed that the patient has mildly enlarged bilateral external iliac lymph nodes, nonspecific, may be reactive metastatic short term followup recommended in 3 months. She has scattered couple of low attenuating too small to characterize liver lesion, likely simple cyst, nonobstructing left renal calculus. She is status post hysterectomy. Her urinary bladder was decompressed with Pa catheter. There was no pneumoperitoneum. No suspicious bony lesion. She has right gluteus minimus musculature hematoma. The patient was admitted to continue with the n.p.o., IV fluid, antiemetic and so far there is no obvious cause of her abdominal pain. The radiologist has not really looked into her appendix. PAST MEDICAL HISTORY: Significant for coronary artery disease, hypertension, dyslipidemia, paroxysmal atrial fibrillation and chronic lymphatic leukemia. PAST SURGICAL HISTORY: Significant for PCI with stent deployment x [address] [facility]; however, she is status post total abdominal hysterectomy. ALLERGIES: She has no known drug allergies. MEDICATIONS: She is on apixaban 5 mg twice a day, Brilinta 90 mg p.o. b.i.d., amiodarone she takes only 200 mg once a day, Crestor 40 mg at bedtime and losartan potassium 50 mg once a day. On her discharge from [facility] her Coreg was discontinued and her amiodarone was cut down to only one tablet once a day. FAMILY HISTORY: Unremarkable. SOCIAL HISTORY: She lives with her son. She apparently does not smoke, drink alcohol or use any recreational drugs. REVIEW OF SYSTEMS: As per history of present illness. PHYSICAL EXAMINATION: GENERAL: On arrival to the Emergency Room, she was in moderate acute distress; however, in nontoxic appearance. She is well developed, well nourished. VITAL SIGNS: Her heart rate was 59, blood pressure 112/75, temperature was 97.6, respiratory rate was 18 and oxygen saturation was 94% on room air. HEAD, EYES, EARS, NOSE, AND THROAT: Showed normocephalic, atraumatic. NECK: Supple. HEART: Showed normal first and second heart sounds with no gallop, rub or murmur. CHEST: Clear to auscultation. No crepitation or rhonchi. ABDOMEN: She has tenderness mostly around the umbilical area. There is no guarding or rigidity. Her bladder was distended and she has mild rebound to lower abdomen. She has old surgery scars. NEUROLOGIC: She was awake, alert x 3. She moves all her extremities and does have difficulty. There are no focal sensory or motor deficits. LABORATORY DATA: While in the Emergency Room, she has had lab work done, which showed that her white cell count was 8200, hemoglobin 12.6, hematocrit 39, MCV 81 and platelet count of 355,000 with normal manual differential. Her sedimentation rate was 48 mm per hour. Her serum sodium was 141, potassium 3.2, chloride 104, bicarbonate 25, anion gap 12, BUN 10, creatinine 1.1, estimated GFR was 58 mL per minute. Her glucose was 127, calcium was 9.3. Total bilirubin, AST, ALT, alkaline phosphatase were normal. Her total protein was 7.5, albumin was 3.3. Her prothrombin time was 12.7, INR 1.3, aPTT was 31. D-dimer was 12.89. Urinalysis showed the urine was yellow, hazy with a pH of 7.5 with specific gravity of 1.015. There was small amount of protein. The urine was negative for glucose, ketones, trace of blood, negative for nitrite, negative for bilirubin, negative for leukocyte esterase. No rbc's, 1-4 wbc's and many bacteria. Her urine toxic screen was positive for opiates, but negative for methadone, barbiturates, phencyclidine, amphetamine, methamphetamine, benzodiazepine, cocaine, cannabinoids and ethyl alcohol. ASSESSMENT: In summary, this is a 78-year-old -[place] Citizen female patient, who yet again came with abdominal pain, mostly around the umbilical area associated with nausea, no vomiting. Her CT scan was mostly unremarkable. In particular the liver, spleen, gallbladder, pancreas, adrenals are within normal limits. There is nonobstructing 3-mm stone in the left kidney. 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 PLAN: My plan is to keep her n.p.o. for now. She has hypokalemia. We will obviously correct that. I will add LDH and serum lipase and decide on further management accordingly. BETTINA BEVERLY MD DR: RAVEN/dotty JOB#: [id number] / [id number]
[2019-03-09] MEDS ORDERED: ENOXAPARIN 40 MG/0.4 ML SYRINGE. SQ SCH (13:45)
[2019-03-09 14:48] VITALS: BP 172/81
[2019-03-09] MEDS ORDERED: ENALAPRILAT 2.5 MG/2 ML VIAL. IV PRN (16:30)
[2019-03-09] MEDS ORDERED: LABETALOL 100 MG/20 ML VIAL. IV PRN (18:00)
[2019-03-09 20:11] VITALS: BP 152/79
[2019-03-09 22:44] VITALS: BP 165/85
[2019-03-10] MEDS ORDERED: ONDANSETRON PF 4 MG/2 ML VIAL. IV PRN (04:00)
[2019-03-10] MEDS: POTASSIUM CL 40MEQ D5-0.45NACL 1,000 ML IV SCH ×2 (04:13→14:55)
--- NOTE | 2019-03-10 04:20 | RAD ---
Ultrasound venous Doppler INDICATION:Elevated d-dimer TECHNIQUE: Grayscale, color Doppler and spectral waveform ultrasound images of the bilateral lower extremities deep veins obtained. COMPARISON: None FINDINGS: The interrogated deep veins are compressible and demonstrate evidence of blood flow with normal respiratory variation and response to augmentation. IMPRESSION: No sonographic evidence of acute DVT of the bilateral lower extremity deep veins. Electronically signed by: Chris Sadler DO (03/10/2019 4:17 AM) [facility]
[2019-03-10 05:58] VITALS: BP 157/80
[2019-03-10 07:00] LABS: BASO % 1 % (0-3); EOS # 0.2 x10^3/uL (0.0-0.7); EOS % 4 % (0-3); HEMATOCRIT 35.9 % (36.0-47.0); HEMOGLOBIN 11.7 g/dL (12.0-15.5); LYMPH # 1.8 x10^3/uL (1.0-4.8); LYMPH % 33 % (24-48); MEAN CORPUSCULAR HEMOGLOBIN 26 pg (25-35); MEAN CORPUSCULAR HGB CONC 33 g/dL (31-37); MEAN CORPUSCULAR VOLUME 81 fL (79-100); MONO # 0.6 x10^3/uL (0.0-1.1); MONO % 11 % (0-9); NEUT # 2.8 x10^3uL (1.8-7.7); NEUT % 51 % (31-73); PLATELET COUNT 312 x10^3/uL (140-400); RED BLOOD COUNT 4.41 x10^6/uL (3.50-5.40); RED CELL DISTRIBUTION WIDTH 14.1 % (11.5-14.5); WHITE BLOOD COUNT 5.5 x10^3/uL (4.0-11.0)
[2019-03-10 07:05] LABS: CALCIUM 8.7 mg/dL (8.5-10.1); GFR 64.7; POTASSIUM 3.7 mmol/L (3.5-5.1)
[2019-03-10] MEDS: ENOXAPARIN 40 MG/0.4 ML SYRINGE. SQ SCH (08:25)
[2019-03-10 11:04] VITALS: BP 168/80
[2019-03-10 14:51] VITALS: BP 158/85
[2019-03-10 19:37] VITALS: BP 136/67
[2019-03-10] MEDS ORDERED: ATORVASTATIN CALCIUM 20 MG TABLET PO SCH (21:00)
[2019-03-10] MEDS: TICAGRELOR 90 MG TABLET. PO SCH (21:21)
[2019-03-11 05:50] VITALS: BP 165/87
[2019-03-11] MEDS: POTASSIUM CL 40MEQ D5-0.45NACL 1,000 ML IV SCH (05:50)
--- NOTE | 2019-03-11 06:05 | PN ---
DATE: 03/10/2019 SUBJECTIVE: The patient is resting, slightly propped up in bed, in no apparent distress. She apparently tolerated her clear liquid and was given a cream of wheat that she tolerated. Our plan is to advance her diet and hopefully if she has had no further episodes of nausea, vomiting, tolerating her regular diet, she can be discharged home tomorrow if she continued to have nausea and vomiting. The next step is for her to be transferred to [facility] for esophagogastroduodenoscopy. I did speak with Dr. Mary Charles regarding possible involvement of the stomach with the lymphoma, but she said that there is no evidence of any obstruction is unlikely and that other pathology should be looked for causing her symptoms. PHYSICAL EXAMINATION: GENERAL: When I examined her this afternoon, she looked well and was clearly in no apparent respiratory distress. She is pale, not jaundice, cyanosis, or thyromegaly. No jugular venous distension. No limb edema. VITAL SIGNS: Her heart rate was 81, blood pressure 168/80, temperature was 98.7, respiratory rate 20, and oxygen saturation was 97% on room air. The rest of clinical exam really has not any change. ABDOMEN: Soft, nontender. No guarding or rigidity. No organomegaly. All hernial orifice intact. Bowel sounds normal. NEUROLOGIC: She managed. She is awake, alert, responding appropriately. All cranial nerves intact. She moves extremities without difficulty. Her intake and 1680, output was 1850. LABORATORY DATA: Her lab work showed a white cell count 5500, hemoglobin 12, hematocrit 36, MCV 81 and platelet count of 312,000. Her chemistry showed a serum sodium 140, potassium 3.7, chloride 103, bicarbonate 28, anion gap of 9, BUN 5, creatinine 1, estimated GFR was 65 mL per minute. Her glucose was 127, calcium was 8.7. Her prothrombin time was 12.7, INR of 1.3, aPTT was 31. Her D-dimer was 12.89. Urinalysis was unremarkable and toxic screen was before obviate. PLAN: To continue with the IV fluid, continue with antiemetics. We will advance her diet this afternoon if she is tolerating, it has no further episodes, we will discharge her back home tomorrow, if not she will be transferred to [facility] for further evaluation and treatment. BETTINA BEVERLY MD DR: Bari JOB#: [id number] / [id number]
[2019-03-11] MEDS ORDERED: PANTOPRAZOLE 40 MG TABLET. PO SCH (07:30)
[2019-03-11] MEDS: TICAGRELOR 90 MG TABLET. PO SCH (08:51)
[2019-03-11] MEDS: ENOXAPARIN 40 MG/0.4 ML SYRINGE. SQ SCH (08:53)
--- NOTE | 2019-03-11 08:58 | NUR ---
NSG NOTE; POST MARTINO REMOVAL VOIDING MARTINO WAS DC'S AT APPROX 0500 THIS AM. PT AMB TO BR AND VOIDED A LARGE AMOUNT OF URINE (SHE MISSED THE HAT FOR MEASURING)
[2019-03-11] MEDS ORDERED: AMIODARONE HCL 200 MG TABLET PO SCH (09:00)
[2019-03-11] MEDS ORDERED: LISINOPRIL 10 MG TABLET PO SCH (09:00)
[2019-03-11 11:04] VITALS: BP 115/70
[2019-03-11] MEDS ORDERED: AMIO200T4 PO (14:52)
[2019-03-11] MEDS ORDERED: ONDA4TAB7 PO (15:00)
--- NOTE | 2019-03-11 15:53 | NUR ---
NSG NOTE; DISCHARGE VERBAL AND WRITTEN DISCHARGE INSTRUCTIONS GIVEN TO PT AND HER SON WITH VERBAL UNDERSTANDING RX X 1 GIVEN TO PT DISCHARGE TO HOME AT 1530 VIA W/C ACCOMP BY FAMILY MEMBERS
== END 2019-03-11 15:40 | disposition home or self-care (01) | DRG 641 ==
LOC: ER 23:26 → 1 SOUTH 03-09 02:30
PROVIDERS: ADMIT Internal Medicine; ATTEND Internal Medicine
DX: E87.6 Hypokalemia (principal); C91.10 Chronic lymphocytic leukemia of B-cell type not having achieved remission; N20.0 Calculus of kidney; I25.10 Atherosclerotic heart disease of native coronary artery without angina pectoris; C50.919 Malignant neoplasm of unspecified site of unspecified female breast; E11.9 Type 2 diabetes mellitus without complications; K59.00 Constipation, unspecified; R33.9 Retention of urine, unspecified; I10 Essential (primary) hypertension; I48.0 Paroxysmal atrial fibrillation; E78.5 Hyperlipidemia, unspecified; Z95.5 Presence of coronary angioplasty implant and graft; Z83.3 Family history of diabetes mellitus; Z82.49 Family history of ischemic heart disease and other diseases of the circulatory system; Z90.710 Acquired absence of both cervix and uterus
CPT/HCPCS: 36415; 51702; 74022; 74177; 80048; 80053; 80076; 80307; 81001; 82150; 82550; 83615; 83690; 84484; 85025; 85379; 85610; 85651; 85730; 87040; 87086; 87186; 93005; 93970; 96361; 96372; 96374; 96375; 96376; J1650; J2270; J2405; J3010; J3490; J7042; J7120; Q9966; Q9967; 99285-25

== ENCOUNTER 2019-08-25 01:53 | Observation (INO) | payer MEDICARE ==
[2019-08-25] VITALS (7 sets, daily range): BP systolic 106–166; BP diastolic 62–70
[~2019-08-25] VITALS: Ht 175.3 cm; Wt 85.8 kg
[~2019-08-25 01:53] MED LIST changes: -ROSU40TA21 PO; +ROSU40TA22 PO; +SIMV20TA18 PO; -SIMV20TA3 PO
--- NOTE | 2019-08-25 02:08 | ED.ADGEN ---
Past History Past Medical History: CAD, Cancer, Constipation, Dementia, Heart Disease, UTI Past Surgical History: Hysterectomy, Other Additional Past Surgical Histo: cardiac stent Smoking: Non-smoker Alcohol Use: None Drug Use: None Adult General Chief Complaint Chief Complaint ".. I an't been right... since my doctor changed my meds... he a foreigner.. I can't remember his name... but he took me off my .. meds to stop clots.. because.. I was getting these spots on my skin.... I ve had chest pain... but I been more short of breath, nausea.. dizzy.. not as well..... You know I ve been here before.. you see I had a heart attack about 3 to 4 months ago.. they did some stents.... on my heart... I was doing fine until the changed my meds around....".. " I am fine now.. but yesterday was not... . but I was taking to my daughter.. and she said I needed to get checked out tonight.. and not wait to see Dr. Keenan. ..." HPI HPI Patient is a 79 year old female who presents with above hx and complains of nausea, dizzy, chest pain, weakness, shortness of breath and " not feeling right". Pt. states chest pain was central and non-radiating. Chest pain has been intermittent. Patient describes her pain intensity as [id number]. Pt. patient does have a history of hypertension. Patient denies any intake bad foods. Patient denies any specific ill contacts. Pt. has history of recent HI with stent placement. Patient currently on arrival without symptoms. By phone conversation with daughter it determined she was taken off of Eliquis . Patient normally follows with Dr. Keenan Review of Systems Review of Systems Constitutional: Denies fever or chills [] Eyes: Denies change in visual acuity, redness, or eye pain [] HENT: Denies nasal congestion or sore throat [] Respiratory: Complaints of shortness of breath yesterday. Cardiovascular: No additional information not addressed in HPI [] GI: complaints of nausea, vomiting yesterday. Denies bloody stools or diarrhea [] : Denies dysuria or hematuria [] Musculoskeletal: Denies back pain or joint pain []Complaints of generalized weakness yesterday. Integument: Denies rash or skin lesions [] Neurologic: Denies headache, focal weakness or sensory changes [] Endocrine: Denies polyuria or polydipsia [] All other systems were reviewed and found to be within normal limits, except as documented in this note. Family History Family History Non-contributory Current Medications Current Medications Current Medications Medications (Trade) Dose Ordered Sig/Daquan Start Time Stop Time Status Last Admin Dose Admin Acetaminophen (Tylenol) 650 mg PRN Q4HRS PRN 08/25/19 03:00 08/25/19 04:15 DC Albuterol/ Ipratropium (Duoneb) 3 ml RTQID 08/25/19 08:00 08/25/19 04:15 DC Aspirin (Children'S Aspirin) 81 mg DAILY 08/25/19 09:00 08/25/19 04:15 DC Enoxaparin Sodium (Lovenox 80mg Syringe) 80 mg BID 08/25/19 09:00 08/25/19 04:15 DC Famotidine (Pepcid Vial) 20 mg 1X ONCE 08/25/19 02:30 08/25/19 02:31 DC 08/25/19 02:33 20 MG Info (Anti-Coagulation Monitoring By Pharmacy) 1 each PRN DAILY PRN 08/25/19 03:15 08/25/19 04:15 DC Lactated Ringer's 1,000 ml @ 1,000 mls/hr 1X ONCE 08/25/19 04:30 08/25/19 04:15 DC Ondansetron HCl (Zofran) 4 mg PRN Q4HRS PRN 08/25/19 03:00 08/25/19 04:15 DC Allergies Allergies Allergies Coded Allergies Type Severity Reaction Last Updated Verified No Known Drug Allergies 03/09/19 No Physical Exam Physical Exam Constitutional: no acute distress, non-toxic appearance. [] HENT: Normocephalic, atraumatic, bilateral external ears normal, oropharynx moist, no oral exudates, nose normal. Poor dentition. Eyes: PERRLA, EOMI, conjunctiva normal, no discharge. [] Neck: Normal range of motion, no tenderness, supple, no stridor. Cardiovascular:Heart rate regular rhythm, no murmur []PMI to Lt. Lungs & Thorax: Bilateral breath sounds clear to auscultation [] Abdomen: Bowel sounds normal, soft, no tenderness, no masses, no pulsatile masses. [] Old surgery scars. Skin: Warm, dry, no erythema, no rash. [] Back: No tenderness, no CVA tenderness. [] Extremities: No tenderness, no cyanosis, no clubbing, ROM intact, ankle edema. [] Arthritic changes. Neurologic: Alert and oriented X 3, normal motor function, normal sensory funct ion, no focal deficits noted. [] Pt. somewhat a poor historian. Psychologic: Affect anxious, judgement normal, mood normal. [] Current Patient Data Vital Signs Vital Signs Date Time Temp Pulse Resp B/P (MAP) Pulse Ox O2 Delivery O2 Flow Rate FiO2 08/25/19 03:26 59 19 113/65 (81) 97 Room Air 08/25/19 01:55 98.1 Lab Results Laboratory Tests Test 08/25/19 02:02 08/25/19 02:39 08/25/19 02:45 White Blood Count 5.7 x10^3/uL (4.0-11.0) Red Blood Count 5.03 x10^6/uL (3.50-5.40) Hemoglobin 13.4 g/dL (12.0-15.5) Hematocrit 42.0 % (36.0-47.0) Mean Corpuscular Volume 83 fL (79-100) Mean Corpuscular Hemoglobin 27 pg (25-35) Mean Corpuscular Hemoglobin Concent 32 g/dL (31-37) Red Cell Distribution Width 16.3 % (11.5-14.5) H Platelet Count 197 x10^3/uL (140-400) Neutrophils (%) (Auto) 45 % (31-73) Lymphocytes (%) (Auto) 33 % (24-48) Monocytes (%) (Auto) 18 % (0-9) H Eosinophils (%) (Auto) 3 % (0-3) Basophils (%) (Auto) 1 % (0-3) Neutrophils # (Auto) 2.6 x10^3uL (1.8-7.7) Lymphocytes # (Auto) 1.9 x10^3/uL (1.0-4.8) Monocytes # (Auto) 1.0 x10^3/uL (0.0-1.1) Eosinophils # (Auto) 0.2 x10^3/uL (0.0-0.7) Basophils # (Auto) 0.1 x10^3/uL (0.0-0.2) Prothrombin Time 10.9 SEC (9.4-11.4) Prothrombin Time INR 1.1 (0.9-1.1) Activated Partial Thromboplast Time 24 SEC (23-33) D-Dimer (Viola) 0.28 mg/L (0.00-0.50) Troponin I Quantitative < 0.017 ng/mL (0-0.055) Urine Collection Type Unknown Urine Color Yellow Urine Clarity Hazy Urine pH 5.5 Urine Specific [place] >=1.030 Urine Protein 100 mg/dl (NEG-TRACE) Urine Glucose (UA) Neg mg/dL (NEG) Urine Ketones (Stick) Trace mg/dL (NEG) Urine Blood Trace (NEG) Urine Nitrite Neg (NEG) Urine Bilirubin Neg (NEG) Urine Urobilinogen Dipstick 2 mg/dL (0.2 mg/dL) Urine Leukocyte Esterase Neg (NEG) Urine RBC 1-2 /HPF (0-2) Urine WBC Occ /HPF (0-4) Urine Squamous Epithelial Cells Many /LPF Urine Bacteria Few /HPF (0-FEW) Urine Mucus Mod /LPF Urine Opiates Screen Neg (NEG) Urine Methadone Screen Neg (NEG) Urine Barbiturates Neg (NEG) Urine Phencyclidine Screen Neg (NEG) Urine Amphetamine/Methamphetamine Neg (NEG) Urine Benzodiazepines Screen Neg (NEG) Urine Cocaine Screen Neg (NEG) Urine Cannabinoids Screen Neg (NEG) Urine Ethyl Alcohol Neg (NEG) Sodium Level 142 mmol/L (136-145) Potassium Level 3.7 mmol/L (3.5-5.1) Chloride Level 106 mmol/L (98-107) Carbon Dioxide Level 26 mmol/L (21-32) Anion Gap 10 (6-14) Blood Urea Nitrogen 22 mg/dL (7-20) H Creatinine 1.8 mg/dL (0.6-1.0) H Estimated GFR (Cockcroft-Gault) 32.8 Glucose Level 122 mg/dL (70-99) H Calcium Level 8.7 mg/dL (8.5-10.1) Magnesium Level 2.0 mg/dL (1.8-2.4) Total Bilirubin 1.1 mg/dL (0.2-1.0) H Direct Bilirubin 0.3 mg/dL (0.0-0.2) H Aspartate Amino Transferase (AST) 16 U/L (15-37) Alanine Aminotransferase (ALT) 8 U/L (14-59) L Alkaline Phosphatase 74 U/L (46-116) Creatine Kinase 105 U/L (26-192) OM-Sdn-K-Type Natriuretic Peptide 98 pg/mL (0-449) Total Protein 6.6 g/dL (6.4-8.2) Albumin 3.3 g/dL (3.4-5.0) L Amylase Level 44 U/L (25-115) Lipase 107 U/L (73-393) EKG EKG My interpretation EKG shows a sinus rhythm at 70 bpm. Some nonspecific EKG changes but no findings acute STEMI with contralateral changes[] Radiology/Procedures Radiology/Procedures [][place] [address] IMAGING REPORT Signed PATIENT: JESSICA DODD BACCOUNT: [id number] : 1940 LOCATION: ER AGE: 79 SEX: F EXAM STATUS: PRE ER ORD. PHYSICIAN: LUIS REY MD REASON: Chest pain PROCEDURE: PORTABLE CHEST 1V PORTABLE CHEST 1V History: Chest pain Comparison: March 05, 2019 Findings: Decreased cardiac silhouette compared to prior. Patchy bibasilar opacities. No pleural effusion. No pneumothorax. Impression: 1. Patchy bibasilar opacities, likely atelectasis. PA and lateral view of the chest can better assess if indicated. Electronically signed by: Doroteo Campa DO (08/25/2019 3:31 AM) [facility] DICTATED AND SIGNED BY: DOROTEO CAMPA DO DATE: 08/25/19 0331 CC: LUIS REY MD; KEO RIVAS ~ Course & Med Decision Making Course & Med Decision Making Pertinent Labs and Imaging studies reviewed. (See chart for details) Admit to Dr. Almanza with cardiology consult. Heart score 5-6 [] Final Impression Final Impression 1. Chest Pain 2. Hx HI with Stents 3- 4 months ago[] 3. Elevated Creat/ BUN 22/1.8 4. Elevated [place]. 1.1/direct 0.3 Dragon Disclaimer Dragon Disclaimer This electronic medical record was generated, in whole or in part, using a voice recognition dictation system. Dragon Disclaimer This chart was dictated in whole or in part using Voice Recognition software in a busy, high-work load, and often noisy Emergency Department environment. It may contain unintended and wholly unrecognized errors or omissions. LUIS REY MD Aug 25, 2019 02:08
[2019-08-25 02:29] LABS: BASO # 0.1 x10^3/uL (0.0-0.2); BASO % 1 % (0-3); EOS # 0.2 x10^3/uL (0.0-0.7); EOS % 3 % (0-3); HEMOGLOBIN 13.4 g/dL (12.0-15.5); LYMPH # 1.9 x10^3/uL (1.0-4.8); LYMPH % 33 % (24-48); MEAN CORPUSCULAR HEMOGLOBIN 27 pg (25-35); MEAN CORPUSCULAR HGB CONC 32 g/dL (31-37); MEAN CORPUSCULAR VOLUME 83 fL (79-100); MONO % 18 % (0-9); NEUT # 2.6 x10^3uL (1.8-7.7); NEUT % 45 % (31-73); PLATELET COUNT 197 x10^3/uL (140-400); RED BLOOD COUNT 5.03 x10^6/uL (3.50-5.40); RED CELL DISTRIBUTION WIDTH 16.3 % (11.5-14.5); WHITE BLOOD COUNT 5.7 x10^3/uL (4.0-11.0)
[2019-08-25] MEDS ORDERED: ONDANSETRON PF 4 MG/2 ML VIAL. IVP ONE (02:30)
[2019-08-25] MEDS ORDERED: IV RINGERS SOLUTION,LACTATED 1,000 ML IV SCH (02:30)
[2019-08-25] MEDS ORDERED: ASPIRIN 81 MG TAB.CHEW PO ONE (02:30)
[2019-08-25] MEDS ORDERED: FAMOTIDINE 20 MG/2 ML VIAL IVP ONE (02:30)
[2019-08-25] MEDS ORDERED: ACETAMINOPHEN 325 MG TABLET PO PRN (03:00)
[2019-08-25] MEDS ORDERED: ONDANSETRON PF 4 MG/2 ML VIAL. IV PRN (03:00)
[2019-08-25 03:10] LABS: BACTERIA,URINE FEW /HPF (0-FEW); BILIRUBIN,URINE NEG (NEG); CLARITY,URINE HAZY; COLOR,URINE YELLOW; GLUCOSE,URINE NEG (NEG); NITRITE,URINE NEG (NEG); SQUAMOUS EPITHELIAL CELL,UR MANY /LPF; UROBILINOGEN,URINE 2 mg/dL (0.2 mg/dL); WBC,URINE OCC /HPF (0-4)
[2019-08-25] MEDS ORDERED: ANTI-COAG MONITOR BY PHARMACY. MC PRN (03:15)
[2019-08-25 03:23] LABS: BARBITURATES NEG (NEG); BENZODIAZEPINES NEG (NEG); CANNABINOIDS NEG (NEG); COCAINE NEG (NEG); METHADONE NEG (NEG); OPIATES NEG (NEG); PHENCYCLIDINE NEG (NEG)
[2019-08-25] MEDS ORDERED: ENOXAPARIN ** NOTE DOSE ** SYRINGE SQ ONE (03:30)
[2019-08-25 03:32] LABS: AMPHETAMINE/METHAMPHETAMINE NEG (NEG)
[2019-08-25 03:33] LABS: ALBUMIN 3.3 g/dL (3.4-5.0); CALCIUM 8.7 mg/dL (8.5-10.1); CREATININE 1.8 mg/dL (0.6-1.0); DIRECT BILIRUBIN 0.3 mg/dL (0.0-0.2); GFR 32.8; POTASSIUM 3.7 mmol/L (3.5-5.1); TOTAL BILIRUBIN 1.1 mg/dL (0.2-1.0); TOTAL PROTEIN 6.6 g/dL (6.4-8.2)
--- NOTE | 2019-08-25 03:34 | RAD ---
PORTABLE CHEST 1V History: Chest pain Comparison: March 05, 2019 Findings: Decreased cardiac silhouette compared to prior. Patchy bibasilar opacities. No pleural effusion. No pneumothorax. Impression: 1. Patchy bibasilar opacities, likely atelectasis. PA and lateral view of the chest can better assess if indicated. Electronically signed by: Doroteo Campa DO (08/25/2019 3:31 AM) [facility]
[2019-08-25] MEDS ORDERED: IV RINGERS SOLUTION,LACTATED 1,000 ML IV ONE (04:30)
--- NOTE | 2019-08-25 04:52 | NUR ---
Cardiac consult called to [facility] answering service.
--- NOTE | 2019-08-25 05:11 | NUR ---
Nonadministration of LR x1, 1000 mL per ED RN. ED RN gave bolus of 500 mL. PT started on LR at 100/hr here.
[2019-08-25] MEDS ORDERED: CARV25TA2 PO (05:21)
[2019-08-25] MEDS ORDERED: ESCI10TA2 PO (05:21)
--- NOTE | 2019-08-25 05:23 | NUR ---
The patient, JESSICA DODD, 79 y/o, F admitted by BETTINA BEVERLY MD, was given written information regarding hospital policies, unit procedures and contact persons. Valuables were checked and noted. PT presented with SOB, CP and dizziness since yesterday afternoon. PT had been having vomiting and diarrhea a few days prior, none last night. PT is currently not nauseous and having no dizziness upon standing or sitting. PT having no SOB at this time, CTA, RA. PT admitted for CP. Consult placed for cardiology. PT lives with her son. PT states no falls. PT uses no assistive devices. PT states her medications are placed in a weekly container for her by her [id number] and she is only aware that she stopped taking Brilinta a few days ago. 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 PT wishes to be full code. Per PT, 2 cardiac stents placed on February 08. PT states she received her flu shot last month. Reviewed with PT her PMH, PSH, SH, FH and medications. PT oriented to unit. PT assessed, IV fluids started (see prior note). PT in no pain at this time.
--- NOTE | 2019-08-25 05:23 | NUR ---
Per PT, Brilinta discontinued a few days ago.
[2019-08-25] MEDS: ASPIRIN 81 MG TAB.CHEW PO SCH (08:28)
[2019-08-25] MEDS: IPRATRPIUM/ALBUTEROL 0.5/2.5MG 3 ML NEBU. NEB SCH ×4 (08:28→20:20)
--- NOTE | 2019-08-25 08:45 | PDOC2 ---
KVNG ELIZONDO SIDE HEMMER 08/25/19 0845: CARDIAC CONSULT DATE OF CONSULT Date Of Consult DATE: 08/25/19 TIME: 08:43 REASON FOR CONSULT Reason for Consult Chest pain REFERRING PHYSICIAN Referring Physician Dr. Almanza SOURCE Source: Chart review, Patient HPI History of Present Illness This is an 79 yo female who presented secondary to dizziness, nausea/vomiting, and sensation that heart was jumping in her chest. Patient has a history of CAD s/p PCI/stent earlier this year and PAFIB. Follows with Dr. Duggan of [facility]. Is on DAPT with ASA/Brilinta. Was recently taken off Eliquis due to significant bruising. Earlier this week, has nausea/vomiting and diarrhea for the last two days. Yesterday was dizzy and would occasionally feel her heart "jumping" in her chest. Denies any shortness of breath or diaphoresis. Has been compliant with al l meds. PAST MEDICAL HISTORY Cardiovascular: AFIB, CAD, CHF, hyperipidemia GI: GERD Musculoskeletal: Osteoarthritis PAST SURGICAL HISTORY Past Surgical History: Hysterectomy, Other (PCI/stent ) FAMILY HISTORY Family History: Cancer SOCIAL HISTORY Smoke: No ALCOHOL: none Drugs: None Lives: with Family CURRENT MEDICATIONS Current Medications Current Medications Aspirin (Children'S Aspirin) 324 mg 1X ONCE PO Last administered on 08/25/19at 02:33; Start 08/25/19 at 02:30; Stop 08/25/19 at 02:31; Status DC Lactated Ringer's 1,000 ml @ 100 mls/hr Q10H IV Last administered on 08/25/19at 02:32; Start 08/25/19 at 02:30; Stop 08/25/19 at 12:29 Ondansetron HCl (Zofran) 8 mg 1X ONCE IVP Last administered on 08/25/19at 02:32; Start 08/25/19 at 02:30; Stop 08/25/19 at 02:31; Status DC Famotidine (Pepcid Vial) 20 mg 1X ONCE IVP Last administered on 08/25/19at 02:33; Start 08/25/19 at 02:30; Stop 08/25/19 at 02:31; Status DC Enoxaparin Sodium (Lovenox 80mg Syringe) 80 mg 1X ONCE SQ Last administered on 08/25/19at 03:26; Start 08/25/19 at 03:30; Stop 08/25/19 at 03:31; Status DC Ondansetron HCl (Zofran) 4 mg PRN Q4HRS PRN IV NAUSEA/VOMITING; Start 08/25/19 at 03:00; Stop 08/26/19 at 02:59 Acetaminophen (Tylenol) 650 mg PRN Q4HRS PRN PO FEVER; Start 08/25/19 at 03:00; Stop 08/26/19 at 02:59 Albuterol/ Ipratropium (Duoneb) 3 ml RTQID NEB Last administered on 08/25/19at 08:28; Start 08/25/19 at 08:00; Stop 08/26/19 at 07:59 Aspirin (Children'S Aspirin) 81 mg DAILY PO Last administered on 08/25/19at 08:28; Start 08/25/19 at 09:00 Enoxaparin Sodium (Lovenox 80mg Syringe) 80 mg BID SQ ; Start 08/25/19 at 09:00 Info (Anti-Coagulation Monitoring By Pharmacy) 1 each PRN DAILY PRN MC SEE COMMENTS; Start 08/25/19 at 03:15 Lactated Ringer's 1,000 ml @ 1,000 mls/hr 1X ONCE IV ; Start 08/25/19 at 04:30; Stop 08/25/19 at 05:29; Status DC Active Scripts Active Reported Escitalopram Oxalate 10 Mg Tablet 10 Mg PO DAILY Carvedilol 25 Mg Tablet 25 Mg PO BID Lisinopril 10 Mg Tablet 10 Mg PO BID Pantoprazole Sodium 20 Mg Tablet.dr 20 Mg PO DAILY Rosuvastatin Calcium 40 Mg Tablet 40 Mg PO HS LAST DOSE GIVEN: DATE: YESTERDAY TIME: AT BEDTIME NEXT DOSE DUE: DATE: TODAY TIME: AT BEDTIME ALLERGIES Allergies: Coded Allergies: No Known Drug Allergies (Unverified , 03/09/19) ROS Review of Systems 14 point ROS conducted with pertinent positives noted above in hPI. PHYSICAL EXAM General: Alert, Oriented X3, Cooperative, No acute distress HEENT: Atraumatic Lungs: Clear to auscultation Heart: Regular rate, Normal S1, Normal S2, Other (2/6 systolic murmur ) Abdomen: Soft Extremities: No edema, Normal pulses Skin: No breakdown Neuro: Normal speech, Sensation intact Psych/Mental Status: Mental status NL, Mood NL MUSCULOSKELETAL: Osteoarthritic changes both hands VITALS Vital Signs Vital Signs Date Time Temp Pulse Resp B/P (MAP) Pulse Ox O2 Delivery O2 Flow Rate FiO2 08/25/19 05:33 Room Air 08/25/19 04:42 97.9 60 20 108/67 (81) 96 LABS LABS Laboratory Tests Test 08/25/19 02:02 08/25/19 02:39 08/25/19 02:45 White Blood Count 5.7 x10^3/uL (4.0-11.0) Red Blood Count 5.03 x10^6/uL (3.50-5.40) Hemoglobin 13.4 g/dL (12.0-15.5) Hematocrit 42.0 % (36.0-47.0) Mean Corpuscular Volume 83 fL (79-100) Mean Corpuscular Hemoglobin 27 pg (25-35) Mean Corpuscular Hemoglobin Concent 32 g/dL (31-37) Red Cell Distribution Width 16.3 % (11.5-14.5) Platelet Count 197 x10^3/uL (140-400) Neutrophils (%) (Auto) 45 % (31-73) Lymphocytes (%) (Auto) 33 % (24-48) Monocytes (%) (Auto) 18 % (0-9) Eosinophils (%) (Auto) 3 % (0-3) Basophils (%) (Auto) 1 % (0-3) Neutrophils # (Auto) 2.6 x10^3uL (1.8-7.7) Lymphocytes # (Auto) 1.9 x10^3/uL (1.0-4.8) Monocytes # (Auto) 1.0 x10^3/uL (0.0-1.1) Eosinophils # (Auto) 0.2 x10^3/uL (0.0-0.7) Basophils # (Auto) 0.1 x10^3/uL (0.0-0.2) Prothrombin Time 10.9 SEC (9.4-11.4) Prothromb Time International Ratio 1.1 (0.9-1.1) Activated Partial Thromboplast Time 24 SEC (23-33) D-Dimer (Viola) 0.28 mg/L (0.00-0.50) Troponin I Quantitative < 0.017 ng/mL (0-0.055) Urine Collection Type Unknown Urine Color Yellow Urine Clarity Hazy Urine pH 5.5 Urine Specific [place] >=1.030 Urine Protein 100 mg/dl (NEG-TRACE) Urine Glucose (UA) Neg mg/dL (NEG) Urine Ketones (Stick) Trace mg/dL (NEG) Urine Blood Trace (NEG) Urine Nitrite Neg (NEG) Urine Bilirubin Neg (NEG) Urine Urobilinogen Dipstick 2 mg/dL (0.2 mg/dL) Urine Leukocyte Esterase Neg (NEG) Urine RBC 1-2 /HPF (0-2) Urine WBC Occ /HPF (0-4) Urine Squamous Epithelial Cells Many /LPF Urine Bacteria Few /HPF (0-FEW) Urine Mucus Mod /LPF Urine Opiates Screen Neg (NEG) Urine Methadone Screen Neg (NEG) Urine Barbiturates Neg (NEG) Urine Phencyclidine Screen Neg (NEG) Urine Amphetamine/Methamphetamine Neg (NEG) Urine Benzodiazepines Screen Neg (NEG) Urine Cocaine Screen Neg (NEG) Urine Cannabinoids Screen Neg (NEG) Urine Ethyl Alcohol Neg (NEG) Sodium Level 142 mmol/L (136-145) Potassium Level 3.7 mmol/L (3.5-5.1) Chloride Level 106 mmol/L (98-107) Carbon Dioxide Level 26 mmol/L (21-32) Anion Gap 10 (6-14) Blood Urea Nitrogen 22 mg/dL (7-20) Creatinine 1.8 mg/dL (0.6-1.0) Estimated GFR (Cockcroft-Gault) 32.8 Glucose Level 122 mg/dL (70-99) Calcium Level 8.7 mg/dL (8.5-10.1) Magnesium Level 2.0 mg/dL (1.8-2.4) Total Bilirubin 1.1 mg/dL (0.2-1.0) Direct Bilirubin 0.3 mg/dL (0.0-0.2) Aspartate Amino Transf (AST/SGOT) 16 U/L (15-37) Alanine Aminotransferase (ALT/SGPT) 8 U/L (14-59) Alkaline Phosphatase 74 U/L (46-116) Creatine Kinase 105 U/L (26-192) FI-Gem-X-Type Natriuretic Peptide 98 pg/mL (0-449) Total Protein 6.6 g/dL (6.4-8.2) Albumin 3.3 g/dL (3.4-5.0) Amylase Level 44 U/L (25-115) Lipase 107 U/L (73-393) ASSESSMENT/PLAN Assessment/Plan 1. Dizziness. Most probably secondary to hypotension in the setting of dehydration from GI loss with nausea/vomiting/diarrhea x2 days. Resolved with IVFs. Blood pressure on low-end. 2. Chest pain, atypical. AMI ruled out. 3. CAD s/p recent PCI/stent placement. Follows with Dr. Duggan of [facility]. Compliant with DAPT 4. Chronic probably diastolic CHF; clinically compensated 5. PAFIB; maintaining SR since admission with controlled HR. Recently take off Eliquis by primary entry level finance secondary to extensive bruising 6. Hyperlipidemia; statin therapy 7. LYNNE, dehydration. Recommendations Resume secondary prevention measures Hold antiHTN therapy for now Continue IVFs May need to lower antiTHN therapy upon discharge Follow up with routine entry level finance upon discharge. JEREMIAS STOKES MD 08/25/19 2140: CARDIAC CONSULT ASSESSMENT/PLAN Assessment/Plan Pt. seen and examined. Agree with above MAIL DISTRIBUTOR note. Supportive care. F/u with Primary entry level finance. No further CV studies at this time. thanks KVNG ELIZONDO APRN Aug 25, 2019 08:45 JEREMIAS STOKES MD Aug 25, 2019 21:40
[2019-08-25] MEDS ORDERED: ENOXAPARIN ** NOTE DOSE ** SYRINGE SQ SCH (09:00)
[2019-08-25] MEDS: CARVEDILOL 12.5 MG TABLET PO SCH (16:59)
--- NOTE | 2019-08-25 17:48 | HP ---
ADMIT DATE: 08/25/2019 HISTORY OF PRESENT ILLNESS: The patient is an 79-year-old female patient who came complaining that she has not been feeling right since her doctor changed her medication, he is a foreigner, thus she cannot remember his name. He apparently discontinued her blood thinner because "I was getting these spots on my skin." She has chest pain, shortness of breath, nausea, dizziness. She apparently has had myocardial infarction about 3-4 months ago with some stents in her heart. She was basically evaluated in the Emergency Room. Her chest pain was mostly central, not radiating and has been intermittent and pain intensity described as mild to moderate. She does have a history of hypertension. She was evaluated in the Emergency Room and was found to have troponin less than 0.017. Her BUN and creatinine were high and was admitted to do 2 more sets of cardiac enzyme and to consult the cardiology team. PAST MEDICAL HISTORY: Significant for coronary artery disease, status post PCI with stent deployment done about 4 months ago. She also has atrial fibrillation, congestive heart failure, hyperlipidemia, and gastroesophageal reflux disease as well as osteoarthritis. She apparently is on a daily antiplatelet with aspirin and Brilinta. She was recently taken off her Eliquis due to significant bruising. PAST SURGICAL HISTORY: Significant for total abdominal hysterectomy and PCI with stent deployment. FAMILY HISTORY: Positive for cancer. SOCIAL HISTORY: She lives with her family. She does not smoke, drink alcohol or use recreational drugs. ALLERGIES: She has no known drug allergies. MEDICATIONS: She is currently on following medications: She is on Crestor 40 mg at bedtime, carvedilol 25 mg twice a day, lisinopril 10 mg twice a day, escitalopram oxalate 10 mg once a day and Protonix 20 mg once a day. REVIEW OF SYSTEMS: As per history of present illness. PHYSICAL EXAMINATION: GENERAL: On arrival, the patient looked well and was clearly in no apparent respiratory distress. No pallor, jaundice, cyanosis or thyromegaly. No jugular venous distention. No lower limb edema. VITAL SIGNS: Her heart rate was 70, blood pressure was 104/61, temperature was 98.1, respiratory rate was 20, and oxygen saturation was 98% on room air. HEAD, EYES, EARS, NOSE AND THROAT: Showed normocephalic, atraumatic. NECK: Supple. HEART: Showed normal first and second heart sounds. No gallop or murmur. CHEST: Clear to auscultation. No crepitation or rhonchi. ABDOMEN: Distended, soft, nontender. No guarding or rigidity. No organomegaly. All hernial orifice intact. Bowel sounds normal. NEUROLOGIC: She was awake, alert, responding appropriately. All cranial nerves intact. She moves extremities without difficulty. She ambulates without assistance or assistive devices normally. LABORATORY DATA: Showed a white cell count 5700, hemoglobin 13, hematocrit 42, MCV 83 and platelet count of 197,000. Her serum sodium was 142, potassium 3.7, chloride 106, bicarbonate 26, anion gap of 10, BUN 22, creatinine 1.8, estimated GFR was 33 mL per minute, her glucose 122, calcium was 8.7, magnesium 2. Total bilirubin, AST, ALT, alkaline phosphatase were normal. Total protein was 6.6, albumin 3.3 and amylase and lipase were normal. Her chest x-ray showed that the patient has decreased cardiac silhouette compared to prior patchy bibasilar opacities, no pleural effusion, pneumothorax. The patient basically was admitted with dizziness secondary to dehydration, nausea, vomiting and diarrhea that has resolved with IV fluid. Her blood pressure continued to be low; therefore, her antihypertensive medications were held. Has chest pain, atypical, myocardial infarction ruled out; coronary artery disease, status post recent PCI with stent deployment; chronic probably diastolic congestive heart failure, clinically well compensated; paroxysmal atrial fibrillation, maintaining sinus rhythm since admission, recently she was off Eliquis by primary associate counsel secondary to extensive bruising; hyperlipidemia, on Crestor; acute kidney injury due to dehydration. PLAN: To continue the IV fluid. We will cut down her antihypertensive medication. I will repeat her lab works tomorrow and decide on further management. I will contact Dr. Duggan tomorrow to see whether she needs to be on Brilinta and aspirin ____ DICTATION ENDS HERE BETTINA BEVERLY MD DR: RAVEN/dotty JOB#: [id number] / [id number]
[2019-08-25 19:59] LABS: THYROID STIM HORMONE (TSH) 1.852 uIU/mL (0.358-3.740)
[2019-08-25] MEDS: ATORVASTATIN CALCIUM 20 MG TABLET PO SCH (20:27)
[2019-08-25] MEDS: IV RINGERS SOLUTION,LACTATED 1,000 ML IV SCH (20:27)
[2019-08-25] MEDS: LISINOPRIL 10 MG TABLET PO SCH (20:28)
[2019-08-26] MEDS: IPRATRPIUM/ALBUTEROL 0.5/2.5MG 3 ML NEBU. NEB SCH (05:37)
[2019-08-26 05:59] VITALS: BP 155/72
[2019-08-26] MEDS: PANTOPRAZOLE 40 MG TABLET. PO SCH (08:04)
--- NOTE | 2019-08-26 08:21 | NUR ---
Pt is alert and oriented, has no complaints. Is hoping to go home today. Sitting up in bed, ready for breakfast. WCTM.
[2019-08-26] MEDS: CARVEDILOL 12.5 MG TABLET PO SCH ×2 (08:40→17:04)
[2019-08-26] MEDS: CITALOPRAM 20 MG TABLET. PO SCH (08:40)
[2019-08-26] MEDS: ASPIRIN 81 MG TAB.CHEW PO SCH (08:40)
[2019-08-26] MEDS: LISINOPRIL 10 MG TABLET PO SCH ×2 (08:40→17:45)
[2019-08-26] MEDS: IV RINGERS SOLUTION,LACTATED 1,000 ML IV SCH (09:20)
[2019-08-26 10:40] VITALS: BP 149/71
[2019-08-26 15:12] VITALS: BP 137/51
[2019-08-26 18:27] LABS: CALCIUM 8.1 mg/dL (8.5-10.1); CREATININE 0.9 mg/dL (0.6-1.0); GFR 72.9; POTASSIUM 3.7 mmol/L (3.5-5.1)
[2019-08-26] MEDS: ATORVASTATIN CALCIUM 20 MG TABLET PO SCH (20:01)
[2019-08-26 21:01] VITALS: BP 148/76
[2019-08-26 23:50] VITALS: BP 154/63
--- NOTE | 2019-08-27 04:32 | NUR ---
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
[2019-08-27 06:12] VITALS: BP 162/76
[2019-08-27 06:39] LABS: HEMATOCRIT 38.3 % (36.0-47.0); RED BLOOD COUNT 4.61 x10^6/uL (3.50-5.40); RED CELL DISTRIBUTION WIDTH 15.6 % (11.5-14.5); WHITE BLOOD COUNT 4.2 x10^3/uL (4.0-11.0)
[2019-08-27 06:47] LABS: ALBUMIN 2.9 g/dL (3.4-5.0); ALBUMIN/GLOBULIN RATIO 0.9 (1.0-1.7); CALCIUM 8.2 mg/dL (8.5-10.1); CREATININE 0.9 mg/dL (0.6-1.0); GFR 72.9; POTASSIUM 3.9 mmol/L (3.5-5.1); TOTAL BILIRUBIN 1.1 mg/dL (0.2-1.0)
[2019-08-27] MEDS: LISINOPRIL 10 MG TABLET PO SCH (08:38)
[2019-08-27] MEDS: CITALOPRAM 20 MG TABLET. PO SCH (08:39)
[2019-08-27] MEDS: PANTOPRAZOLE 40 MG TABLET. PO SCH (08:39)
[2019-08-27] MEDS: CARVEDILOL 12.5 MG TABLET PO SCH (08:39)
[2019-08-27] MEDS: ASPIRIN 81 MG TAB.CHEW PO SCH (08:40)
[2019-08-27 10:45] VITALS: BP 163/63
--- NOTE | 2019-08-27 12:06 | PN ---
DATE: 08/26/2019 SUBJECTIVE: The patient is resting, slightly propped up in bed, in no apparent respiratory distress. She is awake, alert, responding appropriately. On questioning her, denied any complaint. She has had no further episode of syncope or dizziness. No nausea, no vomiting. Has been up and about without any difficulty. OBJECTIVE: GENERAL: When I examined her, she looked well and was clearly in no apparent respiratory distress. No pallor, jaundice, cyanosis or thyromegaly. No jugular venous distension. No lower limb edema. VITAL SIGNS: Her heart rate was 76, blood pressure was 137/51, temperature was 98.4, respiratory rate was 20, and oxygen saturation was 97%. The rest of clinical exam is stable. ASSESSMENT AND PLAN: To continue with current medication. I will change her lisinopril to 10 mg once a day and will repeat her labs again tomorrow and we will discharge her home tomorrow if stable. BETTINA BEVERLY MD DR: RAVEN/dotty JOB#: [id number] / [id number]
[2019-08-27] MEDS ORDERED: LISI10TA2 PO (13:26)
[2019-08-27] MEDS ORDERED: CARV12.547 PO (13:26)
--- NOTE | 2019-08-27 13:38 | NUR ---
IV AND TELE DISCONTINUED. PT UNDERSTANDS ALL FOLLOW UP ORDERS WILL DISCHARGE TO HOME.
--- NOTE | 2019-08-27 15:12 | DS ---
DATE OF DISCHARGE: HOSPITAL COURSE: The patient is an 79-year-old female patient who was admitted with dizziness, nausea, vomiting. She also complained of chest pain that was atypical, acute myocardial infarction was ruled out. She was found to be dehydrated with acute kidney injury. We cut down her antihypertensive medication. We held them actually initially and then we cut down to half and started on IV fluid and her kidney function has steadily improved. In fact, her creatinine came down from 1.8 to 0.9 and BUN came down from 22 to 11. The patient has been up and about and there are no further episodes of dizziness or lightheadedness. No nausea, no vomiting and a decision was made to discharge her home to continue on 10 mg of lisinopril and 12.5 mg twice a day of carvedilol PHYSICAL EXAMINATION: GENERAL: When I saw her this afternoon, she looked well and was clearly in no apparent respiratory distress, pale, but no jaundice, cyanosis, or thyromegaly. No limb edema. VITAL SIGNS: Her heart rate was 69, blood pressure was 163/63, temperature was 98, respiratory rate was 18 and oxygen saturation was 96%. HEAD, EYES, EARS, NOSE AND THROAT: Showed normocephalic, atraumatic. NECK: Supple. HEART: Showed normal first and second heart sounds with no gallop or murmur. CHEST: Clear to auscultation. No crepitation or rhonchi. ABDOMEN: Distended, soft, nontender. NEUROLOGIC: She is awake, alert, responding appropriately. All cranial nerves are intact. She moves extremities without difficulty. She ambulates without assistance or assistive devices. Her intake was 1560, no output was recorded. LABORATORY DATA: This morning showed a serum sodium 145, potassium 3.9, chloride 108, bicarbonate 28, anion gap of 9, BUN 11, creatinine 0.9, estimated GFR was 72 mL per minute, her glucose 94, calcium was 8.2. Total bilirubin 1.1. AST, ALT, alkaline phosphatase were normal. Total protein was 6, albumin 2.9. Her white cell count was 4200, hemoglobin 12, hematocrit 38, MCV 83, and platelet count of 276,000. Prothrombin time, INR and APTT as well as D-dimer are all normal. Urinalysis was unremarkable. Toxic screen was unrevealing. DISCHARGE MEDICATIONS: She was discharged home to continue on following medications: Lisinopril 10 mg once a day, citalopram hydrobromide for Celexa 20 mg once a day, Protonix 20 mg once a day, atorvastatin calcium 80 mg at bedtime, carvedilol 12.5 mg twice a day and aspirin 81 mg once a day. FINAL DISCHARGE DIAGNOSES: 1. Dizziness, likely hypotension, dehydration from nausea and vomiting and diarrhea, resolved. 2. Acute kidney injury, resolved. 3. Chest pain, atypical, acute myocardial infarction ruled out. 4. Coronary artery disease, status post PCI with stent deployment. 5. Chronic diastolic congestive heart failure, clinically well compensated paroxysmal atrial fibrillation, currently in sinus rhythm. She is off Eliquis. 6. Hyperlipidemia for which she is on Lipitor. BETTINA BEVERLY MD DR: RAVEN/dotty JOB#: [id number] / [id number]
== END 2019-08-27 18:49 | disposition home or self-care (01) ==
LOC: ER 01:53 → INTOOBSV 03:00 → 1 SOUTH 03:00 → ER 04:15
PROVIDERS: ADMIT Internal Medicine; ATTEND Internal Medicine
DX: R07.89 Other chest pain (principal); R74.8 Abnormal levels of other serum enzymes; R42 Dizziness and giddiness; E86.0 Dehydration; N17.9 Acute kidney failure, unspecified; I25.10 Atherosclerotic heart disease of native coronary artery without angina pectoris; I11.0 Hypertensive heart disease with heart failure; I50.9 Heart failure, unspecified; E78.5 Hyperlipidemia, unspecified; K21.9 Gastro-esophageal reflux disease without esophagitis; M19.90 Unspecified osteoarthritis, unspecified site; Z90.710 Acquired absence of both cervix and uterus; Z79.82 Long term (current) use of aspirin; Z95.1 Presence of aortocoronary bypass graft
CPT/HCPCS: 36415; 71045; 80048; 80053; 80061; 80076; 80307; 81001; 82150; 82550; 83690; 83735; 83880; 84443; 84484; 85025; 85027; 85379; 85610; 85730; 93005; 94640; 96361; 96372; 96374; 96375; 99284; G0378; J1650; J2405; J3490; J7120; J7620; G0379; 99285-25

== ENCOUNTER 2019-09-19 09:32 | Emergency (ER) | payer MEDICARE, OTHER ==
[~2019-09-19] VITALS: Ht 175.3 cm; Wt 86.6 kg
[~2019-09-19 09:32] MED LIST changes: +CARV12.547 PO; +CARV25TA2 PO
[2019-09-19 09:40] VITALS: BP 158/91
[2019-09-19] MEDS ORDERED: CLIN300C8 PO (09:43)
[2019-09-19] MEDS ORDERED: MUPI22OI2 TP (09:43)
--- NOTE | 2019-09-19 09:43 | PHYS DOC ---
Past History Past Medical History: CAD, Cancer, Constipation, Dementia, Heart Disease, UTI Past Surgical History: Hysterectomy, Other Additional Past Surgical Histo: cardiac stent Smoking: Non-smoker Alcohol Use: None Drug Use: None Adult General Chief Complaint Chief Complaint: FACE PAIN HPI HPI Patient is a very pleasant 79-year-old female who presents to the emergency department for evaluation. She states that for the past 2 days she has had pain on the anterior aspect of her nasal septum, with tenderness to palpation. She states she had a little bleeding, and has developed some swelling. She has not had any fevers or chills. Palpation seems to worsen the pain. There are no alleviating factors to her symptoms. She did not any chest pain, shortness of breath, headache, or any other symptoms or concerns. Review of Systems Review of Systems Constitutional: Denies fever or chills [] Eyes: Denies change in visual acuity, redness, or eye pain [] HENT: Denies nasal congestion or sore throat. Reports nasal pain. [] Respiratory: Denies cough or shortness of breath [] GI: Denies abdominal pain, nausea, vomiting, bloody stools or diarrhea [] : Denies dysuria or hematuria [] Musculoskeletal: Denies back pain or joint pain [] Integument: Denies rash or skin lesions, except as noted in the history of present illness [] Neurologic: Denies headache, focal weakness or sensory changes [] Allergies Allergies Allergies Coded Allergies Type Severity Reaction Last Updated Verified No Known Drug Allergies 03/09/19 No Physical Exam Physical Exam PHYSICAL EXAM: CONSTITUTIONAL: Well developed, well nourished HEAD: normocephalic, atraumatic EENT: PERRL, EOMI. Conjunctivae normal color, sclerae non-icteric; moist mucous membranes. There is some tenderness to palpation along the anterior aspect of the nasal septum, and the skin of the nasal septum, with some soft tissue swelli ng and erythema, suggestive of a cellulitis, with a possible small pustule/pimple present. There is no obvious abscess present at this time that warrants incision and drainage. The remainder of the face and nasal structures are unremarkable. NECK: Supple, non-tender; no meningismus. LUNGS: Lungs CTA, breathing even and unlabored. Normal air movement. HEART: Regular rate and rhythm, no murmur CHEST: No deformity; non-tender ABDOMEN: The abdomen is soft, and non-tender, no masses or bruits. EXTREM: Normal ROM; no deformity, no calf tenderness. Normal pulses palpable in all extremities. There is no pedal edema. SKIN: No rash; no diaphoresis NEURO: Alert; normal speech and cognition; CN's grossly intact; strength grossly intact without focal deficit. BACK: No CVA TTP. EKG EKG [] Radiology/Procedures Radiology/Procedures [] Course & Med Decision Making Course & Med Decision Making I discussed home care with the patient, application of antibiotic ointment, the need for close follow-up, and return precautions. Dragon Disclaimer Dragon Disclaimer This electronic medical record was generated, in whole or in part, using a voice recognition dictation system. Departure Departure: Impression: Primary Impression: Cellulitis of external nose Disposition: HOME, SELF-CARE Condition: STABLE Referrals: KEO RIVAS (PCP) Patient Instructions: Cellulitis Scripts Clindamycin Hcl (CLINDAMYCIN HCL) 300 Mg Capsule 1 CAP PO TID for -, #30 CAP Prov: ALISON RAZO MD 09/19/19 Mupirocin (MUPIROCIN) 22 Gm Oint...g. 1 TOOTIE TP TID for - for 7 Days, #22 GM Prov: ALISON RAZO MD 09/19/19 ALISON RAZO MD Sep 19, 2019 09:43
[2019-09-19] MEDS ORDERED: SULF1TAB24 PO (21:23)
[2019-09-19] MEDS ORDERED: CEPH500C PO (21:23)
[2019-09-19] MEDS ORDERED: ONDA4TAB12 PO (21:23)
== END 2019-09-19 09:47 | disposition home or self-care (01) ==
LOC: ER 09:32
DX: J34.0 Abscess, furuncle and carbuncle of nose (principal); I25.10 Atherosclerotic heart disease of native coronary artery without angina pectoris; Z87.440 Personal history of urinary (tract) infections
CPT/HCPCS: 99283

== ENCOUNTER 2019-09-19 20:52 | Emergency (ER) | payer MEDICARE ==
[~2019-09-19] VITALS: Ht 175.3 cm; Wt 85.9 kg
[~2019-09-19 20:52] MED LIST changes: +CLIN300C8 PO; +MUPI22OI2 TP
[2019-09-19] MEDS ORDERED: CEPH500C PO (21:23)
[2019-09-19] MEDS ORDERED: SULF1TAB24 PO (21:23)
[2019-09-19] MEDS ORDERED: ONDA4TAB12 PO (21:23)
[2019-09-19] MEDS ORDERED: KETOROLAC 30 MG/ML VIAL. IM ONE (21:30)
[2019-09-19] MEDS ORDERED: ONDANSETRON ODT 4 MG TAB.RAPDIS PO ONE (21:30)
--- NOTE | 2019-09-19 21:30 | PHYS DOC ---
Past History Past Medical History: High Cholesterol, Hypertension Past Surgical History: Other Additional Past Surgical Histo: stent Smoking: Non-smoker Alcohol Use: None Drug Use: None Adult General HPI HPI Patient is a [79-year-old female brought in with chief complaint of nausea and vomiting. She was seen earlier today for sialitis of the nose she went home she took her first dose of clindamycin on an empty stomach and she probably started vomiting she says the vomiting is making her nose hurt more her stomach just feels very sick she does not like medication she came back into the emergency room for another evaluation no fever that she knows of Review of Systems Review of Systems Constitutional: Denies fever or chills [] Eyes: Denies change in visual acuity, redness, or eye pain [] HENT: Denies nasal congestion or sore throat [] Respiratory: Denies cough or shortness of breath [] Cardiovascular: No additional information not addressed in HPI [] GI: Integument: Neurologic: Denies headache, focal weakness or sensory changes [] Endocrine: Denies polyuria or polydipsia [] All other systems were reviewed and found to be within normal limits, except as documented in this note. Current Medications Current Medications Current Medications Medications (Trade) Dose Ordered Sig/Daquan Start Time Stop Time Status Last Admin Dose Admin Ketorolac Tromethamine (Toradol 30mg Vial) 30 mg 1X ONCE 09/19/19 21:30 09/19/19 21:31 Ondansetron HCl (Zofran Odt) 4 mg 1X ONCE 09/19/19 21:30 09/19/19 21:31 Allergies Allergies Allergies Coded Allergies Type Severity Reaction Last Updated Verified No Known Drug Allergies 03/09/19 No Physical Exam Physical Exam Constitutional: Well developed, well nourished, patient does appear nauseous non-toxic appearance. [] HENT: Similar appearance to previous visit [id number] cellulitis erythema tenderness to palpation of the nose just anterior to the nasal septum down to the tip of the nose no obvious fluctuance was identified septum was nontender when palpated with a Q-tip inside the bilateral nares Eyes: PERRLA, EOMI, conjunctiva normal, no discharge. [] Neck: Normal range of motion, no tenderness, supple, no stridor. [] Cardiovascular:Heart rate regular rhythm, no murmur [] Lungs & Thorax: Bilateral breath sounds clear to auscultation [] Abdomen: Bowel sounds normal, soft, no tenderness, no masses, no pulsatile masses. [] Skin: Warm, dry, no erythema, no rash. [] Back: No tenderness, no CVA tenderness. [] Extremities: No tenderness, no cyanosis, no clubbing, ROM intact, no edema. [] Neurologic: Alert and oriented X 3, normal motor function, normal sensory function, no focal deficits noted. [] Psychologic: Affect normal, judgement normal, mood normal. [] Current Patient Data Vital Signs Mild Temperature (Fahrenheit): * 97.3 degrees F (97.6-99.5) L Patient Temperature * 97.3 degrees F (97.5-99.5) L Temperature Source * Oral Blood Pressure Systolic * 158 mm Hg (100-140) H Blood Pressure Diastolic * 91 mm Hg (60-100) Blood Pressure Mean * 113 mm Hg Blood Pressure Location * Right Arm Blood Pressure Source * Automatic Cuff Pulse Rate * 87 beats per minute (60-90) Bedside Pulse Oximetry * 97 % Treatment Prior to Arrival * No EKG EKG [] Radiology/Procedures Radiology/Procedures [] Course & Med Decision Making Course & Med Decision Making Pertinent Labs and Imaging studies reviewed. (See chart for details) []Suspect medication effect clindamycin patient was treated symptomatically with improvement switch to Keflex Bactrim and given Zofran as well After about an hour and a half asleep in the emergency room patient was smiling and felt much better we did give a dose of IM ceftriaxone and she was discharged with the above treatment return precautions discussed and she voiced understanding Eugenie Disclaimer Eugenie Disclaimer This electronic medical record was generated, in whole or in part, using a voice recognition dictation system. Departure Departure: Impression: Primary Impression: Nausea and vomiting Disposition: HOME, SELF-CARE Condition: STABLE Referrals: GEOVANNA COLORADO MD (PCP) Patient Instructions: Nausea and Vomiting, [id number] Scripts Sulfamethoxazole/Trimethoprim (BACTRIM DS TABLET) 1 Each Tablet 1 TAB PO BID for cellulitis for 10 Days, #20 TAB 0 Refills Prov: BERLIN CHAPMAN MD 09/19/19 Cephalexin (CEPHALEXIN) 500 Mg Capsule 1 CAP PO TID for cellulitis, #30 CAP Prov: BERLIN CHAPMAN MD 09/19/19 Ondansetron (ONDANSETRON ODT) 4 Mg Tab.rapdis 1 TAB PO PRN Q6-8HRS PRN for NAUSEA/VOMITING, #16 TAB Prov: BERLIN CHAPMAN MD 09/19/19 BERLIN CHAPMAN MD Sep 19, 2019 21:30
[2019-09-19] MEDS ORDERED: cefTRIAXone IM 1 GM VIAL IM ONE (23:00)
[2019-09-19 23:25] VITALS: BP 140/73
== END 2019-09-19 23:25 | disposition home or self-care (01) ==
LOC: ER 20:52
DX: R11.2 Nausea with vomiting, unspecified (principal); J34.0 Abscess, furuncle and carbuncle of nose; E78.00 Pure hypercholesterolemia, unspecified; I10 Essential (primary) hypertension
CPT/HCPCS: 96372; 99284; J0696; J1885; Q0162

== ENCOUNTER → 2019-12-14 | Outpatient (CLI) | payer MEDICARE ==
[~2019-12-14] MED LIST changes: +CEPH500C PO; +ONDA4TAB12 PO; +SULF1TAB24 PO
[2019-12-14 10:09] LABS: ALBUMIN 3.7 g/dL (3.4-5.0); ALBUMIN/GLOBULIN RATIO 1.1 (1.0-1.7); CALCIUM 8.9 mg/dL (8.5-10.1); CREATININE 0.8 mg/dL (0.6-1.0); GFR 83.5; POTASSIUM 4.3 mmol/L (3.5-5.1); TOTAL BILIRUBIN 1.3 mg/dL (0.2-1.0); TOTAL PROTEIN 7.2 g/dL (6.4-8.2)
== END | disposition home or self-care (01) ==
LOC: LAB 08:46
PROVIDERS: ATTEND Internal Medicine Cardiovascular Disease
DX: E78.00 Pure hypercholesterolemia, unspecified (principal)
CPT/HCPCS: 36415; 80053; 80061

== ENCOUNTER → 2020-04-17 | Outpatient (CLI) | payer MEDICARE ==
[2020-04-17 11:08] LABS: ALBUMIN 3.6 g/dL (3.4-5.0); DIRECT BILIRUBIN 0.3 mg/dL (0.0-0.2); TOTAL BILIRUBIN 1.3 mg/dL (0.2-1.0); TOTAL PROTEIN 7.3 g/dL (6.4-8.2)
== END ==
LOC: LAB 09:49
PROVIDERS: ATTEND Podiatrist Foot & Ankle Surgery
DX: B35.1 Tinea unguium (principal)
CPT/HCPCS: 36415; 80076

== ENCOUNTER → 2020-06-15 | Outpatient (CLI) | payer MEDICARE ==
[~2020-06-15] MED LIST changes: -PANT20TA3 PO; +PANT20TA4 PO
--- NOTE | 2020-06-16 17:15 | RAD ---
DATE: 06/15/2020 10:45 AM EXAM: MAMMO NEIL CECILY ARORA HISTORY: 80-year-old woman with a palpable lump in the left breast present during for imaging evaluation. By report, she has a history of chronic lymphocytic lymphoma. She declines additional imaging evaluation beyond initial mammography. COMPARISON: Right axillary ultrasound of 12/31/2017, bilateral diagnostic mammogram of that same date, bilateral mammogram of 02/06/2006 TECHNIQUE: Bilateral CC and MLO views of the breasts were performed. Bilateral breast tomosynthesis was performed in CC and MLO projections. This study was interpreted with the benefit of Computerized Aided Detection (CAD). FINDINGS: Breast Density: SCATTERED The breast parenchyma shows scattered fibroglandular densities. Breast parenchyma level B Bulky left greater than right bilateral axillary adenopathy has developed since the last mammogram and there are 2 oval dense circumscribed masses in the upper outer left breast respectively measuring 9 and 24 mm. The larger mass correlates with the palpable finding on clinical exam. Otherwise, no suspicious masses, microcalcifications or architectural distortion is present in either breast. IMPRESSION: Benign mammographic findings consistent with the patient's known history of CLL. BI-RADS CATEGORY: 2 BENIGN FINDING(S) RECOMMENDED FOLLOW-UP: CLIN FOLLOW UP IMAGING CLINICALLY INDICATED Recommend clinical management of patient's area of palpable concern (which may include biopsy if clinically suspicious). This could represent lymphomatous infiltration of a superficial intramammary lymph node. It should be readily amenable to biopsy based on palpation or imaging guidance if clinically warranted. If there is any clinical uncertainty about the etiology of the palpable finding, biopsy should be considered. Ultrasound was not pursued per patient preference at this visit. PQRS compliance statement: Patient information was entered into a reminder system with a target due date for the next mammogram. Mammography is a sensitive method for finding small breast cancers, but it does not detect them all and is not a substitute for careful clinical examination. A negative mammogram does not negate a clinically suspicious finding and should not result in delay in biopsying a clinically suspicious abnormality. "Our facility is accredited by the [employer] Mammography [employer]."
== END | disposition home or self-care (01) ==
LOC: MAMMO 10:29
PROVIDERS: ATTEND Internal Medicine Hematology & Oncology
DX: R92.2 Inconclusive mammogram (principal); N63.21 Unspecified lump in the left breast, upper outer quadrant
CPT/HCPCS: 77066; G0279; 77062

== ENCOUNTER → 2020-09-29 | Outpatient (CLI) | payer MEDICARE ==
[~2020-09-29] MED LIST changes: -AMIO200T4 PO; +AMIO200T6 PO
[2020-09-29 11:50] LABS: BASO # 0.1 x10^3/uL (0.0-0.2); BASO % 1 % (0-3); EOS # 0.2 x10^3/uL (0.0-0.7); EOS % 3 % (0-3); HEMATOCRIT 40.8 % (36.0-47.0); HEMOGLOBIN 12.9 g/dL (12.0-15.5); LYMPH # 2.4 x10^3/uL (1.0-4.8); LYMPH % 43 % (24-48); MEAN CORPUSCULAR HEMOGLOBIN 26 pg (25-35); MEAN CORPUSCULAR HGB CONC 32 g/dL (31-37); MEAN CORPUSCULAR VOLUME 83 fL (79-100); MONO # 0.7 x10^3/uL (0.0-1.1); MONO % 13 % (0-9); NEUT # 2.2 x10^3uL (1.8-7.7); NEUT % 40 % (31-73); PLATELET COUNT 155 x10^3/uL (140-400); RED BLOOD COUNT 4.92 x10^6/uL (3.50-5.40); RED CELL DISTRIBUTION WIDTH 16.5 % (11.5-14.5); WHITE BLOOD COUNT 5.6 x10^3/uL (4.0-11.0)
== END ==
LOC: LAB 11:01
PROVIDERS: ATTEND Internal Medicine Hematology & Oncology
DX: C91.10 Chronic lymphocytic leukemia of B-cell type not having achieved remission (principal)
CPT/HCPCS: 36415; 85025

== ENCOUNTER → 2021-02-27 | Outpatient (CLI) | payer MEDICARE ==
[~2021-02-27] MED LIST changes: -CLIN300C8 PO; +CLIN300C9 PO; -ESCI10TA2 PO; +ESCI10TA90 PO; +LISI10TA16 PO; -LISI10TA2 PO; -LISI40TA PO; +LISI40TA6 PO
[2021-02-27 10:40] LABS: BASO # 0.1 x10^3/uL (0.0-0.2); BASO % 1 % (0-3); EOS # 0.1 x10^3/uL (0.0-0.7); EOS % 2 % (0-3); HEMATOCRIT 40.1 % (36.0-47.0); HEMOGLOBIN 12.7 g/dL (12.0-15.5); LYMPH # 2.2 x10^3/uL (1.0-4.8); LYMPH % 44 % (24-48); MEAN CORPUSCULAR HEMOGLOBIN 27 pg (25-35); MEAN CORPUSCULAR HGB CONC 32 g/dL (31-37); MEAN CORPUSCULAR VOLUME 84 fL (79-100); MONO # 1.1 x10^3/uL (0.0-1.1); MONO % 22 % (0-9); NEUT # 1.5 x10^3uL (1.8-7.7); NEUT % 31 % (31-73); PLATELET COUNT 193 x10^3/uL (140-400); RED BLOOD COUNT 4.77 x10^6/uL (3.50-5.40); RED CELL DISTRIBUTION WIDTH 15.7 % (11.5-14.5); WHITE BLOOD COUNT 4.9 x10^3/uL (4.0-11.0)
[2021-02-27 10:47] LABS: BILIRUBIN,URINE NEG (NEG); CLARITY,URINE CLEAR; COLOR,URINE YELLOW; GLUCOSE,URINE NEG (NEG); NITRITE,URINE NEG (NEG); RBC,URINE 0 /HPF (0-2); WBC,URINE OCC /HPF (0-4)
[2021-02-27 10:48] LABS: BACTERIA,URINE FEW /HPF (0-FEW)
[2021-02-27 10:50] LABS: ALBUMIN 3.3 g/dL (3.4-5.0); CALCIUM 8.4 mg/dL (8.5-10.1); CREATININE 0.8 mg/dL (0.6-1.0); GFR 83.3; POTASSIUM 4.3 mmol/L (3.5-5.1); TOTAL BILIRUBIN 0.8 mg/dL (0.2-1.0); TOTAL PROTEIN 6.6 g/dL (6.4-8.2)
[2021-02-28 14:34] LABS: THYROID STIM HORMONE (TSH) 0.943 uIU/mL (0.358-3.740)
== END ==
LOC: LAB 09:13
PROVIDERS: ATTEND Family Medicine
DX: C91.90 Lymphoid leukemia, unspecified not having achieved remission (principal); R31.9 Hematuria, unspecified; E78.49 Other hyperlipidemia; R00.2 Palpitations; I10 Essential (primary) hypertension
CPT/HCPCS: 36415; 80053; 80061; 81001; 84443; 85025

== ENCOUNTER → 2021-06-19 | Outpatient (CLI) | payer MEDICARE ==
--- NOTE | 2021-06-20 15:32 | RAD ---
DATE: 06/19/2021 EXAM: MAMMO NEIL SCREENING BILATERAL HISTORY: Screening COMPARISON: 06/15/2020, 12/31/2017, 12/18/2011 This study was interpreted with the benefit of Computerized Aided Detection (CAD). Breast Density: SCATTERED The breast parenchyma shows scattered fibroglandular densities. Breast parenchyma level B. FINDINGS: A dense circumscribed 2.5 cm mass in the upper outer left breast middle depth and didn't circumscribed 6 mm mass in the outer left breast middle depth are unchanged. Dense bilateral axillary lymphadenopathy, left greater than right, is unchanged. There is no new mass, suspicious calcifications, or architectural distortion in either breast. IMPRESSION: No new abnormality or change. 2 circumscribed masses in the left breast and bilateral axillary lymphadenopathy are unchanged and consistent with the patient's history of lymphoma. According to the report from mammogram 06/15/2020, the patient declined additional imaging evaluation at that time. Recommend continued clinical follow-up and management of lymphadenopathy in left breast masses, and annual mammogram in 12 months BI-RADS CATEGORY: 2 BENIGN FINDING(S) RECOMMENDED FOLLOW-UP: 12M 12 MONTH FOLLOW-UP PQRS compliance statement: Patient information was entered into a reminder system with a target due date for the next mammogram. Mammography is a sensitive method for finding small breast cancers, but it does not detect them all and is not a substitute for careful clinical examination. A negative mammogram does not negate a clinically suspicious finding and should not result in delay in biopsying a clinically suspicious abnormality. "Our facility is accredited by the [employer]ammography [employer]."
== END ==
LOC: MAMMO 10:40
PROVIDERS: ATTEND Internal Medicine Hematology & Oncology
DX: Z12.31 Encounter for screening mammogram for malignant neoplasm of breast (principal); N63.21 Unspecified lump in the left breast, upper outer quadrant; R59.0 Localized enlarged lymph nodes
CPT/HCPCS: 77063; 77067

== ENCOUNTER 2021-10-22 11:24 | Emergency (ER) | payer MEDICARE ==
[~2021-10-22] VITALS: Ht 165.1 cm; Wt 80.0 kg
[~2021-10-22 11:24] MED LIST changes: +AMIO200T54 PO; -AMIO200T6 PO; +CLIN-95 PO; -CLIN300C9 PO
[2021-10-22 11:54] VITALS: BP 106/67
== END 2021-10-22 13:42 | disposition left against medical advice (07) ==
LOC: ER 11:24
DX: R11.2 Nausea with vomiting, unspecified (principal); R19.7 Diarrhea, unspecified; R42 Dizziness and giddiness; R05.9 Cough, unspecified; R09.81 Nasal congestion; Z53.21 Procedure and treatment not carried out due to patient leaving prior to being seen by health care provider

== ENCOUNTER 2021-10-25 13:46 | Emergency (ER) | payer MEDICARE ==
[~2021-10-25] VITALS: Ht 165.1 cm; Wt 80.0 kg
[2021-10-25] MEDS ORDERED: IV NORMAL SALINE 1,000ML 1,000 ML IV ONE (14:15)
[2021-10-25 15:20] LABS: BASO # 0.1 x10^3/uL (0.0-0.2); BASO % 1 % (0-3); EOS # 0.2 x10^3/uL (0.0-0.7); EOS % 3 % (0-3); HEMATOCRIT 40.2 % (36.0-47.0); HEMOGLOBIN 12.6 g/dL (12.0-15.5); LYMPH # 0.8 x10^3/uL (1.0-4.8); LYMPH % 12 % (24-48); MEAN CORPUSCULAR HEMOGLOBIN 26 pg (25-35); MEAN CORPUSCULAR HGB CONC 31 g/dL (31-37); MEAN CORPUSCULAR VOLUME 83 fL (79-100); MONO % 15 % (0-9); NEUT # 4.4 x10^3uL (1.8-7.7); NEUT % 68 % (31-73); PLATELET COUNT 194 x10^3/uL (140-400); RED BLOOD COUNT 4.86 x10^6/uL (3.50-5.40); RED CELL DISTRIBUTION WIDTH 14.6 % (11.5-14.5); WHITE BLOOD COUNT 6.4 x10^3/uL (4.0-11.0)
[2021-10-25 15:22] LABS: CALCIUM 8.2 mg/dL (8.5-10.1); GFR 64.2; POTASSIUM 3.8 mmol/L (3.5-5.1)
[2021-10-25 15:28] LABS: ALBUMIN 2.6 g/dL (3.4-5.0); ALBUMIN/GLOBULIN RATIO 0.6 (1.0-1.7); TOTAL BILIRUBIN 0.8 mg/dL (0.2-1.0); TOTAL PROTEIN 6.7 g/dL (6.4-8.2)
[2021-10-25 15:34] LABS: INFLUENZA A PATIENT NEGATIVE (NEGATIVE); INFLUENZA B PATIENT NEGATIVE (NEGATIVE)
--- NOTE | 2021-10-25 15:52 | PHYS DOC ---
Past History Past Medical History: High Cholesterol, Hypertension (ZACH CASTAÑEDA APRN) Past Surgical History: Other Additional Past Surgical Histo: CARDIAC STENT (ZACH CASTAÑEDA APRN) Smoking: Non-smoker Alcohol Use: None Drug Use: None (ZACH CASTAÑEDA APRN) General Adult EDM: Chief Complaint: ABDOMINAL PAIN HPI: HPI: Patient is an 81-year-old female that presents today via [facility] with a 4-day complaint of nausea vomiting and diarrhea. Patient states her symptoms started 4 days ago, she came to the emergency department 2 days ago but left without being seen due to the long wait, she then tried to call her primary care physician who was unable to get her an appointment until early next week, so she then called 911 to bring her to the emergency department. Patient also states that she has had a cough and her daughter who lives in the household with her is positive for COVID-19. Patient denies chest pain, shortness of air, fever or chills, or dysuria. (ZACH CASTAÑEDA APRN) Review of Systems: Review of Systems: Constitutional: Denies fever or chills Eyes: Denies change in visual acuity HENT: Denies nasal congestion or sore throat Respiratory: Denies cough or shortness of breath Cardiovascular: Denies chest pain or edema GI: Denies abdominal pain, nausea, vomiting, bloody stools or diarrhea : Denies dysuria Musculoskeletal: Denies back pain or joint pain Integument: Denies rash Neurologic: Denies headache, focal weakness or sensory changes Endocrine: Denies polyuria or polydipsia Lymphatic: Denies swollen glands Psychiatric: Denies depression or anxiety (ZACH CASTAÑEDA APRN) Current Medications: Current Meds: Current Medications Medications (Trade) Dose Ordered Sig/Daquan Start Time Stop Time Status Last Admin Dose Admin Sodium Chloride 1,000 ml @ 1,000 mls/hr 1X ONCE 10/25/21 14:15 10/25/21 15:14 DC 10/25/21 14:15 1,000 MLS/HR (ZACH CASTAÑEDA APRN) Allergies: Allergies: Allergies Coded Allergies Type Severity Reaction Last Updated Verified No Known Drug Allergies 03/09/19 No (ZACH CASTAÑEDA APRN) Physical Exam: PE: Constitutional: Well developed, well nourished, no acute distress, non-toxic appearance. [] HENT: Normocephalic, atraumatic, bilateral external ears normal, oropharynx moist, no oral exudates, nose normal. [] Eyes: PERRLA, EOMI, conjunctiva normal, no discharge. [] Neck: Normal range of motion, no tenderness, supple, no stridor. [] Cardiovascular:Heart rate regular rhythm, no murmur [] Lungs & Thorax: Breath sounds clear to auscultation, cough noted Abdomen: Bowel sounds hypoactive, no tenderness noted with deep palpation. Skin: Warm, dry, no erythema, no rash. [] Back: No tenderness, no CVA tenderness. [] Extremities: No tenderness, no cyanosis, no clubbing, ROM intact, no edema. [] Neurologic: Alert and oriented X 3, normal motor function, normal sensory function, no focal deficits noted. [] Psychologic: Affect normal, judgement normal, mood normal. [] (ZACH CASTAÑEDA APRN) Current Patient Data: Labs: Laboratory Tests Test 10/25/21 14:46 White Blood Count 6.4 x10^3/uL (4.0-11.0) Red Blood Count 4.86 x10^6/uL (3.50-5.40) Hemoglobin 12.6 g/dL (12.0-15.5) Hematocrit 40.2 % (36.0-47.0) Mean Corpuscular Volume 83 fL (79-100) Mean Corpuscular Hemoglobin 26 pg (25-35) Mean Corpuscular Hemoglobin Concent 31 g/dL (31-37) Red Cell Distribution Width 14.6 % (11.5-14.5) H Platelet Count 194 x10^3/uL (140-400) Neutrophils (%) (Auto) 68 % (31-73) Lymphocytes (%) (Auto) 12 % (24-48) L Monocytes (%) (Auto) 15 % (0-9) H Eosinophils (%) (Auto) 3 % (0-3) Basophils (%) (Auto) 1 % (0-3) Neutrophils # (Auto) 4.4 x10^3uL (1.8-7.7) Lymphocytes # (Auto) 0.8 x10^3/uL (1.0-4.8) L Monocytes # (Auto) 1.0 x10^3/uL (0.0-1.1) Eosinophils # (Auto) 0.2 x10^3/uL (0.0-0.7) Basophils # (Auto) 0.1 x10^3/uL (0.0-0.2) Platelet Estimate Pending Sodium Level 134 mmol/L (136-145) L Potassium Level 3.8 mmol/L (3.5-5.1) Chloride Level 98 mmol/L (98-107) Carbon Dioxide Level 27 mmol/L (21-32) Anion Gap 9 (6-14) Blood Urea Nitrogen 20 mg/dL (7-20) Creatinine 1.0 mg/dL (0.6-1.0) Estimated GFR (Cockcroft-Gault) 64.2 BUN/Creatinine Ratio 20 (6-20) Glucose Level 129 mg/dL (70-99) H Calcium Level 8.2 mg/dL (8.5-10.1) L Total Bilirubin 0.8 mg/dL (0.2-1.0) Aspartate Amino Transferase (AST) 27 U/L (15-37) Alanine Aminotransferase (ALT) 18 U/L (14-59) Alkaline Phosphatase 143 U/L (46-116) H Total Protein 6.7 g/dL (6.4-8.2) Albumin 2.6 g/dL (3.4-5.0) L Albumin/Globulin Ratio 0.6 (1.0-1.7) L Lipase 70 U/L (73-393) L Influenza Type A (Rapid) Negative (NEGATIVE) Influenza Type B (Rapid) Negative (NEGATIVE) SARS-CoV-2 Antigen (Rapid) Negative (NEGATIVE) Vital Signs: Vital Signs Date Time Temp Pulse Resp B/P (MAP) Pulse Ox O2 Delivery O2 Flow Rate FiO2 10/25/21 13:51 98.8 77 16 94/49 (64) 95 Room Air (ZACH CASTAÑEDA APRN) EKG: EKG: [] (ZACH CASTAÑEDA APRN) Radiology/Procedures: Radiology/Procedures: REASON: abdominal pain, OMNI 300, 75ml PROCEDURE: CT ABD PELV W/ IV CONTRST ONLY PQRS Compliance Statement: One or more of the following individualized dose reduction techniques were utilized for this examination: 1. Automated exposure control 2. Adjustment of the mA and/or kV according to patient size 3. Use of iterative reconstruction technique CT abdomen/pelvis with contrast 10/25/2021 4:30 PM INDICATION: Abdominal pain COMPARISON: CT abdomen/pelvis 03/09/2019 TECHNIQUE: Multiple axial CT images of the abdomen and pelvis were obtained after the intravenous administration of 75 mL Omnipaque 300. Coronal and sagittal reformats are provided. FINDINGS: There is consolidation identified within the anterior basal segment left lower lobe. Heart size within normal limits. 4 mm hypodensity within the medial left hepatic lobe (series 2, image 16) favors benign etiology such as simple cyst or hemangioma. There is segmental hypoattenuation involving the superior spleen, new from the prior examination from 03/01/2019. Consideration may be given for splenic infarct. Mild fusiform thickening of the left adrenal gland appear stable. Pancreas and gallbladder are normal in appearance. No intrahepatic or extra hepatic biliary ductal dilatation. Abdominal aorta is normal in course and caliber. Gastrohepatic lymph node measures 1.1 cm. Left para-aortic lymph node measures 1.4 cm. Left paraglottic lymph node measures 2.1 cm (series 2, image 36). Aortocaval and paracaval lymphadenopathy is identified. Left external iliac lymph node measures 1.17. Right external iliac lymph node measures 2.3 cm. Bilateral inguinal lymphadenopathy. No free fluid or free intraperitoneal air. Mild diverticulosis. No bowel obstruction or inflammation. There is 6 mm nonobstructing kyphosis in inferior pole left kidney. 3.1 cm simple cyst in the inferior pole of left kidney. No suspicious renal mass. Urinary bladder is within normal limits given degree of distention. No suspicious pelvic mass. No suspicious osseous abnormality. There is a lipoma in the right gluteus muscle measuring 3.8 x 2.6 cm. IMPRESSION: 1. Diffuse abdominal and pelvic lymphadenopathy as may be seen with lymphoma or metastatic disease. Correlate with any known history of malignancy. Findings are new from prior examination. Tissue sampling may be of benefit. 2. Consolidation in the anterior basal segment left lower lobe favors pulmonary infiltrate in appropriate clinical setting. 3. 4 mm hypodensity in the left hepatic lobe is indeterminate. Abdominal MRI could be of benefit for further characterization. 4. 6 mm nonobstructing kyphosis in interpolar left kidney. No obstructive uropathy. Electronically signed by: Aria Santos MD (10/25/2021 4:49 PM) [email or web address][] REASON: cough PROCEDURE: CHEST AP ONLY EXAM: CHEST ONE VIEW. HISTORY: Cough. COMPARISON: 08/25/2019. FINDINGS: A frontal view of the chest is obtained. Bibasilar airspace opacities are consistent with atypical pneumonia. There is no pneumothorax or clear pleural effusion. The heart is mildly enlarged. IMPRESSION: 1. Bibasilar opacities suggest atypical pneumonia or mild pulmonary edema. 2. Mild cardiomegaly. Electronically signed by: Daniel Simms MD (10/25/2021 5:58 PM) [id number] (ZACH CASTAÑEDA APRN) Heart Score: C/O Chest Pain: N/A Risk Factors: Risk Factors: DM, Current or recent (<one month) smoker, HTN, HLP, family history of CAD, obesity. Risk Scores: Score 0 - 3: 2.5% MACE over next 6 weeks - Discharge Home Score 4 - 6: 20.3% MACE over next 6 weeks - Admit for Clinical Observation Score 7 - 10: 72.7% MACE over next 6 weeks - Early Invasive Strategies (ZACH CASTAÑEDA APRN) Course & Med Decision Making: Course & Med Decision Making Pertinent Labs and Imaging studies reviewed. (See chart for details) 1800 reviewed radiological results and laboratory results with patient. When I informed patient that she had enlarged lymph nodes in her abdomen and pelvis area, she stated that she scants follows a cancer specialist every 3 months her next appointment is in December 2021, she states she has a history of lymphoma. Patient states she is feeling much better, she has not had any bouts of nausea vomiting or diarrhea while in the department. Currently her blood pressure is 107/63, oxygen saturations are 96% on room air. Patient will be discharged home will be treated for community-acquired pneumonia with Augmentin, will also call in a prescription for Zofran as needed for nausea. Patient was also informed that her COVID status was negative on the rapid if she would like to get a COVID PCR she will need to follow-up with the [facility] for that. Patient is encouraged to follow-up with her primary care physician tomorrow by akosua jacobsen for follow-up early next week. Patient is agreeable to the plan of care and will be discharged home in the care of her daughter. (ZACH CASTAÑEDA APRN) Dragon Disclaimer: Dragon Disclaimer: This electronic medical record was generated, in whole or in part, using a voice recognition dictation system. (ZACH CASTAÑEDA APRN) Departure Departure: Impression: Primary Impression: Nausea and vomiting Qualified Codes: R11.2 - Nausea with vomiting, unspecified Additional Impression: Pneumonia Qualified Codes: J18.9 - Pneumonia, unspecified organism Disposition: HOME / SELF CARE / HOMELESS Condition: STABLE Referrals: GEOVANNA COLORADO MD (PCP) Patient Instructions: Clear Liquid Diet, Nausea and Vomiting, Pneumonia, Adult Additional Instructions: Augmentin take 1 tablet twice daily until completed. Zofran 4 mg take 1 tablet every 6-8 hours as needed for nausea and vomiting. Use with caution may cause constipation. Drink lots of water while taking this medication Increase by mouth fluids Follow-up with your primary care physician as soon as possible Return to the emergency department for the inability to keep by mouth fluids down even with use of Zofran, increased work of breathing, fever not controlled by Tylenol and/or ibuprofen or chest pain that is continuous. Scripts Ondansetron (ONDANSETRON ODT) 4 Mg Tab.rapdis 1 TAB PO PRN Q6-8HRS for nausea, #16 TAB Prov: ZACH CASTAÑEDA APRN 10/25/21 Amoxicillin/Potassium Clav (AUGMENTIN 875-125 TABLET) 1 Each Tablet 1 TAB PO BID for pneumonia for 10 Days, #20 TAB 0 Refills Prov: ZACH CASTAÑEDA APR10/25/21 Attending Signature Attending Signature I have participated in the care of this patient and I have reviewed and agree with all pertinent clinical information above including history, exam, and recommendations. (LUIS REY MD) ZACH CASTAÑEDA APRN Oct 25, 2021 15:52 LUIS REY MD Oct 28, 2021 21:14
[2021-10-25] MEDS ORDERED: IOHEXOL 300 MG/ML 75 ML VIAL. IV ONE (16:00)
[2021-10-25 16:27] LABS: % BANDS 12 % (0-9); % EOS 1 % (0-5); % LYMPHS 12 % (24-48); % METAS 1 % (0-0); % MONOS 18 % (0-10); % SEGS 56 % (35-66)
[2021-10-25 16:28] LABS: PLT ESTIMATE ADEQUATE (ADEQUATE)
--- NOTE | 2021-10-25 16:51 | RAD ---
PQRS Compliance Statement: One or more of the following individualized dose reduction techniques were utilized for this examinat ion: 1. Automated exposure control 2. Adjustment of the mA and/or kV according to patient size 3. Use of iterative reconstruction technique CT abdomen/pelvis with contrast 10/25/2021 4:30 PM INDICATION: Abdominal pain COMPARISON: CT abdomen/pelvis 03/09/2019 TECHNIQUE: Multiple axial CT images of the abdomen and pelvis were obtained after the intravenous adm inistration of 75 mL Omnipaque 300. Coronal and sagittal reformats are provided. FINDINGS: There is consolidation identified within the anterior basal segment left lower lobe. Heart size withi n normal limits. 4 mm hypodensity within the medial left hepatic lobe (series 2, image 16) favors tonio ign etiology such as simple cyst or hemangioma. There is segmental hypoattenuation involving the supe rior spleen, new from the prior examination from 03/01/2019. Consideration may be given for splenic in farct. Mild fusiform thickening of the left adrenal gland appear stable. Pancreas and gallbladder are normal in appearance. No intrahepatic or extra hepatic biliary ductal dilatation. Abdominal aorta is normal in course and caliber. Gastrohepatic lymph node measures 1.1 cm. Left para- aortic lymph node measures 1.4 cm. Left paraglottic lymph node measures 2.1 cm (series 2, image 36). Aortocaval and paracaval lymphadenopathy is identified. Left external iliac lymph node measures 1.17. Right external iliac lymph node measures 2.3 cm. Bilateral inguinal lymphadenopathy. No free fluid o r free intraperitoneal air. Mild diverticulosis. No bowel obstruction or inflammation. There is 6 mm nonobstructing kyphosis in inferior pole left kidney. 3.1 cm simple cyst in the inferio r pole of left kidney. No suspicious renal mass. Urinary bladder is within normal limits given degree of distention. No suspicious pelvic mass. No suspicious osseous abnormality. There is a lipoma in th e right gluteus muscle measuring 3.8 x 2.6 cm. IMPRESSION: 1. Diffuse abdominal and pelvic lymphadenopathy as may be seen with lymphoma or metastatic disease. C orrelate with any known history of malignancy. Findings are new from prior examination. Tissue sampli ng may be of benefit. 2. Consolidation in the anterior basal segment left lower lobe favors pulmonary infiltrate in appropr iate clinical setting. 3. 4 mm hypodensity in the left hepatic lobe is indeterminate. Abdominal MRI could be of benefit for further characterization. 4. 6 mm nonobstructing kyphosis in interpolar left kidney. No obstructive uropathy. Electronically signed by: Aria Santos MD (10/25/2021 4:49 PM) [facility]
[2021-10-25 17:09] LABS: BILIRUBIN,URINE MOD (NEG); CLARITY,URINE HAZY; COLOR,URINE YELLOW; GLUCOSE,URINE 100 mg/dL (NEG)
[2021-10-25 17:10] LABS: BACTERIA,URINE FEW /HPF (0-FEW); NITRITE,URINE NEG (NEG); SQUAMOUS EPITHELIAL CELL,UR MOD /LPF
[2021-10-25 18:01] VITALS: BP 107/53
--- NOTE | 2021-10-25 18:01 | RAD ---
EXAM: CHEST ONE VIEW. HISTORY: Cough. COMPARISON: 08/25/2019. FINDINGS: A frontal view of the chest is obtained. Bibasilar airspace opacities are consistent with atypical pneumonia. There is no pneumothorax or darryn r pleural effusion. The heart is mildly enlarged. IMPRESSION: 1. Bibasilar opacities suggest atypical pneumonia or mild pulmonary edema. 2. Mild cardiomegaly. Electronically signed by: Daniel Simms MD (10/25/2021 5:58 PM) [id number]
[2021-10-25] MEDS ORDERED: AMOX1TAB61 PO (18:24)
[2021-10-25] MEDS ORDERED: ONDA4TAB12 PO (18:24)
== END 2021-10-25 19:08 | disposition home or self-care (01) ==
LOC: ER 13:46
DX: J18.9 Pneumonia, unspecified organism (principal); E78.00 Pure hypercholesterolemia, unspecified; I10 Essential (primary) hypertension; Z20.822 Contact with and (suspected) exposure to COVID-19
CPT/HCPCS: 36415; 71045; 74177; 80053; 81001; 83690; 85007; 85025; 87428; 96360; 99285; J7030; Q9967

== ENCOUNTER 2021-10-28 12:45 | Inpatient (IN) | payer MEDICARE ==
[~2021-10-28] VITALS: Ht 165.1 cm; Wt 74.6 kg
[~2021-10-28 12:45] MED LIST changes: +AMOX1TAB61 PO
[2021-10-28] MEDS ORDERED: IV NORMAL SALINE 1,000ML 1,000 ML IV ONE ×2 (13:30→16:00)
--- NOTE | 2021-10-28 13:35 | PHYS DOC ---
Past History Past Medical History: High Cholesterol, Hypertension (RADHA CAMPOS APRN) Past Surgical History: Other Additional Past Surgical Histo: CARDIAC STENT (RADHA CAMPOS APRN) Smoking: Non-smoker Alcohol Use: None Drug Use: None (RADHA CAMPOS APRN) General Adult EDM: Chief Complaint: FATIGUE HPI: HPI: Patient is an 81-year-old female who presents to the emergency department today for syncopal episode while having a bowel movement. Patient was seen in this emergency department 3 days ago for abdominal pain and imaging was performed of patient's abdomen that showed a kidney stone still in her kidney, lymphoma and pneumonia. Patient has known lymphoma. Patient was discharged home with an antibiotic. Patient is also reporting generalized abdominal pain at this visit. She denies any chest pain, shortness of breath, cough, fever, nausea, vomiting. Per nursing staff patient was found with dried feces to her lower extremities and bedbugs. Patient resides with family at home. (RADHA CAMPOS APRN) Review of Systems: Review of Systems: Constitutional: negative unless reported in HPI Eyes: negative unless reported in HPI HENT: negative unless reported in HPI Respiratory: negative unless reported in HPI Cardiovascular: negative unless reported in HPI GI: negative unless reported in HPI : negative unless reported in HPI Musculoskeletal: negative unless reported in HPI Integument: negative unless reported in HPI Neurologic: negative unless reported in HPI Endocrine: negative unless reported in HPI Lymphatic: negative unless reported in HPI Psychiatric: negative unless reported in HPI (RADHA CAMPOS APRN) Current Medications: Current Meds: Current Medications Medications (Trade) Dose Ordered Sig/Daquan Start Time Stop Time Status Last Admin Dose Admin Sodium Chloride 1,000 ml @ 1,000 mls/hr 1X ONCE 10/28/21 13:30 10/28/21 14:29 (RADHA CAMPOS APRN) Allergies: Allergies: Allergies Coded Allergies Type Severity Reaction Last Updated Verified No Known Drug Allergies 03/09/19 No (RADHA CAMPOS APRN) Physical Exam: PE: Constitutional: Well developed, well nourished, no acute distress, non-toxic appearance. [] HENT: Normocephalic, atraumatic, bilateral external ears normal, oropharynx moist, no oral exudates, nose normal. [] Eyes: PERRL, EOMI, conjunctiva normal, crusting bilaterally Neck: Normal range of motion, no stridor Cardiovascular:Heart rate regular rhythm, no murmur [] Lungs & Thorax: Bilateral breath sounds clear to auscultation [] Abdomen: Bowel sounds normal, soft, no abdominal guarding or rigidity, pain with palpation to right lower abdomen, no masses, no pulsatile masses. [] Skin: Warm, dry, no erythema, no rash. [] Back: Normal range of motion Extremities: No tenderness, no cyanosis, no clubbing, ROM intact, no edema. [] Neurologic: Alert and oriented X 3, normal motor function, normal sensory function, no focal deficits noted. [] Psychologic: Affect normal, judgement normal, mood normal. [] (RADHA CAMPOS APRN) Current Patient Data: Labs: Laboratory Tests Test 10/28/21 13:10 10/28/21 14:20 Urine Collection Type Clean catch Urine Color Yellow Urine Clarity Cloudy Urine pH 7.0 Urine Specific [place] 1.010 Urine Protein Neg Urine Glucose (UA) Neg mg/dL Urine Ketones (Stick) Neg mg/dL Urine Blood Small Urine Nitrite Neg Urine Bilirubin Neg Urine Urobilinogen Dipstick 0.2 mg/dL Urine Leukocyte Esterase Small Urine RBC 3-5 /HPF Urine WBC 11-20 /HPF Urine Squamous Epithelial Cells Few /LPF Urine Bacteria Many /HPF White Blood Count 9.1 x10^3/uL Red Blood Count 4.86 x10^6/uL Hemoglobin 12.8 g/dL Hematocrit 39.9 % Mean Corpuscular Volume 82 fL Mean Corpuscular Hemoglobin 26 pg Mean Corpuscular Hemoglobin Concent 32 g/dL Red Cell Distribution Width 14.4 % Platelet Count 230 x10^3/uL Neutrophils (%) (Auto) 78 % Lymphocytes (%) (Auto) 12 % Monocytes (%) (Auto) 9 % Eosinophils (%) (Auto) 1 % Basophils (%) (Auto) 0 % Neutrophils # (Auto) 7.0 x10^3uL Lymphocytes # (Auto) 1.1 x10^3/uL Monocytes # (Auto) 0.8 x10^3/uL Eosinophils # (Auto) 0.1 x10^3/uL Basophils # (Auto) 0.0 x10^3/uL Sodium Level 130 mmol/L Potassium Level 4.0 mmol/L Chloride Level 95 mmol/L Carbon Dioxide Level 23 mmol/L Anion Gap 12 Blood Urea Nitrogen 20 mg/dL Creatinine 1.1 mg/dL Estimated GFR (Cockcroft-Gault) 57.5 BUN/Creatinine Ratio 18 Glucose Level 157 mg/dL Calcium Level 8.3 mg/dL Total Bilirubin 0.9 mg/dL Aspartate Amino Transf (AST/SGOT) 82 U/L Alanine Aminotransferase (ALT/SGPT) 50 U/L Alkaline Phosphatase 146 U/L Troponin I High Sensitivity 15 ng/L Total Protein 6.4 g/dL Albumin 2.2 g/dL Albumin/Globulin Ratio 0.5 Lipase 113 U/L Current Medications Medications (Trade) Dose Ordered Sig/Daquan Route PRN Reason Start Time Stop Time Status Last Admin Dose Admin Sodium Chloride 1,000 ml @ 1,000 mls/hr 1X ONCE IV 10/28/21 13:30 10/28/21 14:29 DC 10/28/21 14:32 Ondansetron HCl (Zofran) 4 mg 1X ONCE IVP 10/28/21 14:45 10/28/21 14:46 DC 10/28/21 14:45 Fentanyl Citrate (Fentanyl 2ml Vial) 50 mcg 1X ONCE IVP 10/28/21 14:45 10/28/21 14:46 DC 10/28/21 14:45 Sodium Chloride 1,000 ml @ 75 mls/hr 1X ONCE IV 10/28/21 16:00 10/29/21 05:19 Ceftriaxone Sodium 1 gm/ Sodium Chloride 50 ml @ 100 mls/hr 1X ONCE IV 10/28/21 16:00 10/28/21 16:29 DC 10/28/21 16:25 Sodium Bicarbonate (Sodium Bicarb Adult 8.4% Syr) 50 meq 1X ONCE IV 10/28/21 16:00 10/28/21 16:17 DC 10/28/21 16:24 Sodium Chloride 50 ml @ As Directed STK-MED ONCE .ROUTE 10/28/21 16:18 10/28/21 16:19 DC Ceftriaxone Sodium (Rocephin) 1 gm STK-MED ONCE .ROUTE 10/28/21 16:18 10/28/21 16:19 DC Vital Signs: Vital Signs Date Time Temp Pulse Resp B/P (MAP) Pulse Ox O2 Delivery O2 Flow Rate FiO2 10/28/21 13:12 98.9 80 20 102/68 (79) 99 Room Air (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 Churchill (RADHA CAMPOS APRN) Radiology/Procedures: Radiology/Procedures: []PROCEDURE: CT HEAD AND CERVICAL SPINE WO CT HEAD AND C-SPINE WO, CT ABDOMEN+PELVIS WO dated 10/28/2021 1:45 PM Indication:Reason: fall syncope / Spl. Instructions: / History: Comparison: CT 10/25/2021. Technique: Noncontrast images were performed. One or more of the following individualized dose reduction techniques were utilized for this examination: 1. Automated exposure control 2. Adjustment of the mA and/or kV according to patient size 3. Use of iterative reconstruction technique Findings: CT head: There is no apparent intracranial hemorrhage or abnormal extra-axial fluid collection. There is patchy low density in the cerebral white matter consistent with chronic small vessel ischemic injury. No other area of abnormal density is seen. The ventricles and basilar cisterns are normally positioned. Bone windows show no apparent fracture of the skull or mastoid opacification. There is fairly extensive ethmoid and right frontal opacification. CT cervical spine: Alignment is normal. There is no apparent loss of vertebral body height or prevertebral soft tissue swelling. No fracture line is seen. Intervertebral disks are not narrowed. Evaluation of the soft tissue components of the canal is limited without intrathecal contrast. No destructive process is seen. Note is made of extensive cervical adenopathy. CT abdomen and pelvis: There is mild atelectasis again seen in the left lower lobe. Lung bases otherwise are clear. The liver and spleen are normal in configuration. There is still some low attenuation in the anterior upper aspect of the spleen possibly indicating a small infarct. Evaluation of the solid organs is limited without IV contrast. No adjacent hemorrhage is seen. The kidneys show no apparent solid mass or obstruction. A cyst in seen posteriorly in the left kidney and there is also an adjacent calculus. No adrenal or pancreatic abnormality is seen. Extensive adenopathy is again demonstrated. There is no apparent free fluid in the abdomen. Images through the pelvis show no apparent abnormality of the distal ureters. The bladder is now significantly distended. Enlarged pelvic and iliac nodes are again shown. No new pelvic mass or free fluid is seen. Bone windows show no fracture or other acute abnormality. IMPRESSION: CT head: No acute abnormality. CT cervical spine: No acute abnormality in the spine. There is cervical adenopathy. CT abdomen and pelvis: No evidence of acute injury. Evaluation is somewhat li mited by noncontrast technique. The patient had a CT 3 days earlier demonstrating extensive adenopathy. Lymphoma or chronic leukemia are considerations. Electronically signed by: Carlos Latham Jr., MD (10/28/2021 2:13 PM) [facility] DICTATED AND SIGNED BY: CARLOS LATHAM Jr, MD DATE: 10/28/21 1405 CC: RADHA CAMPOS APRN; GEOVANNA COLORADO MD ~MTH0 0 (RADHA CAMPOS APRN) Heart Score: C/O Chest Pain: N/A Risk Factors: Risk Factors: DM, Current or recent (<one month) smoker, HTN, HLP, family history of CAD, obesity. Risk Scores: Score 0 - 3: 2.5% MACE over next 6 weeks - Discharge Home Score 4 - 6: 20.3% MACE over next 6 weeks - Admit for Clinical Observation Score 7 - 10: 72.7% MACE over next 6 weeks - Early Invasive Strategies (RADHA CAMPOS APRN) Course & Med Decision Making: Course & Med Decision Making Pertinent Labs and Imaging studies reviewed. (See chart for details) [] Patient presents to the emergency department today for syncopal episode while having a bowel movement today. Patient is also reporting generalized abdominal pain. Imaging performed 3 days ago showed a stone in her right kidney and lymphoma which is known to patient. Work-up in the ER consisted of blood work, EKG, imaging of abdomen and pelvis. Patient's family member reports that they are unable to take care of patient at home and they are requesting admission to the hospital. CBC and CMP are mostly unremarkable, patient was noted to have hyponatremia which was replaced in the emergency department. Urinalysis showed a urinary tract infection and patient will be treated with antibiotics. Imaging of head and neck showed no acute findings. Imaging of abdomen and pelvis showed lymphoma which is known to patient. She reports that her oncologist is Dr. Louis. Patient attempted to ambulate but was not able to ambulate without assistance. Nausea treated in ER. I discussed these findings with Dr. Donovan who agreed to admit the patient under his services for urinary tract infection and weakness .Patients case discussed with supervising physician.Patient treated with iv fluids, antibiotics per Dr. Donovan. Patient and family aware of care plan and agreeable at this time. ER bridge orders placed 1611. (RADHA CAMPOS APRN) Course & Med Decision Making Did not see or evaluate patient. Did not discuss patient with REGULATORY AUDITOR. Agree with REGULATORY AUDITOR's work-up and disposition per note. (MANHOAR CHURCHILL MD) Dragon Disclaimer: Dragon Disclaimer: This electronic medical record was generated, in whole or in part, using a voice recognition dictation system. (RADHA CAMPOS APRN) Departure Departure: Impression: Primary Impression: Urinary tract infection Qualified Codes: N30.00 - Acute cystitis without hematuria Additional Impression: Generalized weakness Disposition: ADMITTED INPATIENT Admitting Physician: Ramy Donovan (RADHA CAMPOS APRN) Condition: STABLE Referrals: GEOVANNA COLORADO MD (PCP) RADHA CAMPOS APRN Oct 28, 2021 13:35 MANOHAR CHURCHILL MD Oct 28, 2021 17:54
--- NOTE | 2021-10-28 13:41 | EKG ---
[address] [address] Test Date: 2021-10-28 Test Time: 13:16:33 Pat Name: JESSICA DODD Department: Room: Gender: F Nut Tapper: MYRNA : 1940 Requested By: RADHA CAMPOS Order Number: [id number] Reading MD: Gerald Muller MD Measurements Intervals [place] Rate: 91 P: 54 CT: 168 QRS: -24 QRSD: 108 T: 54 QT: 382 QTc: 472 Interpretive Statements SINUS RHYTHM PVC Electronically Signed On 11-05-2021 16:08:45 HAUNTED HISTORY TOUR GUIDE by Gerald uMller MD
--- NOTE | 2021-10-28 14:16 | RAD ---
CT HEAD AND C-SPINE WO, CT ABDOMEN+PELVIS WO dated 10/28/2021 1:45 PM Indication:Reason: fall syncope / Spl. Instructions: / History: Comparison: CT 10/25/2021. Technique: Noncontrast images were performed. One or more of the following individualized dose reduction techniques were utilized for this examinat ion: 1. Automated exposure control 2. Adjustment of the mA and/or kV according to patient size 3. Use of iterative reconstruction technique Findings: CT head: There is no apparent intracranial hemorrhage or abnormal extra-axial fluid collection. There is patchy low density in the cerebral white matter consistent with chronic small vessel ischemic inj ury. No other area of abnormal density is seen. The ventricles and basilar cisterns are normally posi tioned. Bone windows show no apparent fracture of the skull or mastoid opacification. There is fairly extensive ethmoid and right frontal opacification. CT cervical spine: Alignment is normal. There is no apparent loss of vertebral body height or prevert ebral soft tissue swelling. No fracture line is seen. Intervertebral disks are not narrowed. Evaluati on of the soft tissue components of the canal is limited without intrathecal contrast. No destructive process is seen. Note is made of extensive cervical adenopathy. CT abdomen and pelvis: There is mild atelectasis again seen in the left lower lobe. Lung bases otherw ise are clear. The liver and spleen are normal in configuration. There is still some low attenuation in the anterior upper aspect of the spleen possibly indicating a small infarct. Evaluation of the pilar id organs is limited without IV contrast. No adjacent hemorrhage is seen. The kidneys show no apparen t solid mass or obstruction. A cyst in seen posteriorly in the left kidney and there is also an adjac ent calculus. No adrenal or pancreatic abnormality is seen. Extensive adenopathy is again demonstrate d. There is no apparent free fluid in the abdomen. Images through the pelvis show no apparent abnormality of the distal ureters. The bladder is now sign ificantly distended. Enlarged pelvic and iliac nodes are again shown. No new pelvic mass or free flui d is seen. Bone windows show no fracture or other acute abnormality. IMPRESSION: CT head: No acute abnormality. CT cervical spine: No acute abnormality in the spine. There is cervical adenopathy. CT abdomen and pelvis: No evidence of acute injury. Evaluation is somewhat limited by noncontrast willie hnique. The patient had a CT 3 days earlier demonstrating extensive adenopathy. Lymphoma or chronic l eukemia are considerations. Electronically signed by: Alex Latham Jr., MD (10/28/2021 2:13 PM) [facility]
[2021-10-28] MEDS ORDERED: ONDANSETRON PF 4 MG/2 ML VIAL. IVP ONE (14:45)
[2021-10-28 14:48] LABS: BASO % 0 % (0-3); EOS # 0.1 x10^3/uL (0.0-0.7); EOS % 1 % (0-3); HEMATOCRIT 39.9 % (36.0-47.0); HEMOGLOBIN 12.8 g/dL (12.0-15.5); LYMPH # 1.1 x10^3/uL (1.0-4.8); LYMPH % 12 % (24-48); MEAN CORPUSCULAR HEMOGLOBIN 26 pg (25-35); MEAN CORPUSCULAR HGB CONC 32 g/dL (31-37); MEAN CORPUSCULAR VOLUME 82 fL (79-100); MONO # 0.8 x10^3/uL (0.0-1.1); MONO % 9 % (0-9); NEUT % 78 % (31-73); PLATELET COUNT 230 x10^3/uL (140-400); RED BLOOD COUNT 4.86 x10^6/uL (3.50-5.40); RED CELL DISTRIBUTION WIDTH 14.4 % (11.5-14.5); WHITE BLOOD COUNT 9.1 x10^3/uL (4.0-11.0)
[2021-10-28 14:59] LABS: CALCIUM 8.3 mg/dL (8.5-10.1); CREATININE 1.1 mg/dL (0.6-1.0); GFR 57.5
[2021-10-28 15:04] LABS: BACTERIA,URINE MANY /HPF (0-FEW); BILIRUBIN,URINE NEG (NEG); CLARITY,URINE CLOUDY; COLOR,URINE YELLOW; GLUCOSE,URINE NEG (NEG); NITRITE,URINE NEG (NEG); SQUAMOUS EPITHELIAL CELL,UR FEW /LPF; UROBILINOGEN,URINE 0.2 mg/dL (0.2 mg/dL)
[2021-10-28 15:05] LABS: ALBUMIN 2.2 g/dL (3.4-5.0); ALBUMIN/GLOBULIN RATIO 0.5 (1.0-1.7); TOTAL BILIRUBIN 0.9 mg/dL (0.2-1.0); TOTAL PROTEIN 6.4 g/dL (6.4-8.2)
[2021-10-28] MEDS ORDERED: SODIUM BICARB ADULT 8.4% 50 MEQ/50 ML DISP.SYRIN. IV ONE (16:00)
[2021-10-28] MEDS ORDERED: cefTRIAXone SODIUM 1 GM VIAL ONE (16:18)
[2021-10-28] MEDS ORDERED: IV NORMAL SALINE 50ML 50 ML ONE (16:18)
[2021-10-28] MEDS ORDERED: diphenhydrAMINE 50 MG/ML VIAL IVP ONE (16:30)
[2021-10-28] MEDS ORDERED: diphenhydrAMINE 50 MG/ML VIAL ONE (16:36)
[2021-10-28 16:43] LABS: INFLUENZA A PATIENT NEGATIVE (NEGATIVE); INFLUENZA B PATIENT NEGATIVE (NEGATIVE)
[2021-10-28 21:10] VITALS: BP 163/74
[2021-10-28 21:19] LABS: CALCIUM 7.9 mg/dL (8.5-10.1); GFR 64.2; POTASSIUM 3.7 mmol/L (3.5-5.1)
--- NOTE | 2021-10-28 22:31 | NUR ---
The patient, JESSICA DODD, 81 y/o, F admitted by BETTINA BEVERLY MD, was given written information regarding hospital policies, unit procedures and contact persons. Valuables were checked and vitals obtained. Pt is admitted with UTI, weakness and fatigue. Pt is on rooom air able to express own concerns. Currently pt has no complaints. Will continue to monitor.
[2021-10-29] VITALS: BP 147/89
--- NOTE | 2021-10-29 05:52 | NUR ---
Reviewed history and medication use with pt. She was unsure of specifics and asked this nurse to contact her daughter Taylor. Confirmed history and medications with Taylor at [phone]. Pt slept soundly all night. Pt states she started an antibiotic a day before she came to the ER (Augmentin) and has had diarrhea for the last two days. No diarrhea witnessesed since arrival. yuni
[2021-10-29 07:29] VITALS: BP 136/66
[2021-10-29 08:36] LABS: BASO % 0 % (0-3); EOS # 0.1 x10^3/uL (0.0-0.7); EOS % 1 % (0-3); HEMATOCRIT 36.3 % (36.0-47.0); HEMOGLOBIN 11.7 g/dL (12.0-15.5); LYMPH # 1.1 x10^3/uL (1.0-4.8); LYMPH % 13 % (24-48); MEAN CORPUSCULAR HEMOGLOBIN 26 pg (25-35); MEAN CORPUSCULAR HGB CONC 32 g/dL (31-37); MEAN CORPUSCULAR VOLUME 82 fL (79-100); MONO # 0.9 x10^3/uL (0.0-1.1); MONO % 11 % (0-9); NEUT # 6.7 x10^3uL (1.8-7.7); NEUT % 76 % (31-73); PLATELET COUNT 245 x10^3/uL (140-400); RED BLOOD COUNT 4.45 x10^6/uL (3.50-5.40); RED CELL DISTRIBUTION WIDTH 14.6 % (11.5-14.5); WHITE BLOOD COUNT 8.9 x10^3/uL (4.0-11.0)
[2021-10-29 08:38] LABS: ALBUMIN 2.1 g/dL (3.4-5.0); ALBUMIN/GLOBULIN RATIO 0.6 (1.0-1.7); CALCIUM 7.8 mg/dL (8.5-10.1); CREATININE 0.9 mg/dL (0.6-1.0); GFR 72.5; POTASSIUM 3.9 mmol/L (3.5-5.1); TOTAL BILIRUBIN 0.8 mg/dL (0.2-1.0); TOTAL PROTEIN 5.4 g/dL (6.4-8.2)
[2021-10-29] MEDS ORDERED: FLU VACC QUAD 21-22 (6MOS+) PF 0.5 ML SYRINGE. VAX IM ONE (09:00)
[2021-10-29 11:39] VITALS: BP 128/65
[2021-10-29] MEDS ORDERED: ACETAMINOPHEN 325 MG TABLET PO PRN (12:15)
[2021-10-29 15:32] VITALS: BP 134/69
[2021-10-29] MEDS: CARVEDILOL 12.5 MG TABLET PO SCH (17:00)
--- NOTE | 2021-10-29 17:03 | HP ---
DATE OF SERVICE: 10/29/2021 ADMIT DATE: 10/28/2021 HISTORY OF PRESENT ILLNESS: The patient is an 81-year-old -[place] female patient who apparently was seen on 10/25/2021 at Emergency Room of [facility]. At that time, she was diagnosed with pneumonia and was apparently discharged home to continue on oral antibiotic in the form of Augmentin one tablet twice a day as well as Zofran; however, the patient continued to do poorly. She continued to moans and groans, complaining of abdominal pain and was brought back again last night, 10/28/2021. She apparently again presented to the Emergency Room with a syncopal episode while having a bowel movement and she also reported generalized abdominal pain. Denied any chest pain, shortness of breath, cough, phlegm. Denied any fever, chills, rigors, nausea or vomiting. Nursing staff stated that the patient was found to have dried feces to her lower extremities and bedbugs. She resides with her son who apparently works a lot and is not there with her. She was extensively investigated and has had lab work and imaging studies. Her lab work showed that she has mild hyponatremia, slightly impaired kidney function and hypoalbuminemia. Her urinalysis showed that the urine was yellow, cloudy with a pH of 7, specific gravity of 1.010, there were about 11-20 wbc's, many bacteria. Her influenza A and B were negative and SARS-CoV-2 antigen rapid testing was negative. She did have a CT scan of the head and cervical spine, which basically CT scan of the head showed no acute abnormality. CT of the cervical spine, no acute abnormality in the spine. There is cervical adenopathy. CT abdomen and pelvis, no evidence of acute injury. Evaluation is somewhat limited by noncontrast technique. The patient had a CT scan 3 days ago after earlier demonstrating extensive adenopathy, lymphoma or chronic leukemia are consideration. The patient was admitted and was started on IV antibiotic in the form of ceftriaxone and she received IV fluid and was admitted for further evaluation and treatment. PAST MEDICAL HISTORY: Significant for hypertension, hyperlipidemia, coronary artery disease status post PCI with stent deployment. She was also diagnosed with lymphoma [address] Louis[address] At that time, apparently cervical lymph node biopsy confirmed the diagnosis. However, she did not require any treatment and has been followed with lab work every 3 months. About 3 months ago, she had her lab work done and was basically normal and did not require any change in treatment. PAST SURGICAL HISTORY: Significant for PCI and stent deployment and cervical lymph node biopsy. ALLERGIES: She has no known drug allergies. MEDICATIONS: She is currently on the following medications: She is on Crestor 40 mg at bedtime, carvedilol 12.5 mg twice a day, lisinopril 10 mg once a day, escitalopram oxalate 10 mg once a day, ondansetron 4 mg daily, Protonix 40 mg once a day, and Bactroban ointment topically 3 times a day. FAMILY HISTORY: Noncontributory. SOCIAL HISTORY: Her son lives with her. She has 4 sons and 5 daughters. She never smoked, does not drink alcohol or use any recreational drugs. She is a [id number] mom. REVIEW OF SYSTEMS: As per history of present illness. PHYSICAL EXAMINATION: GENERAL: When I examined her on arrival to the Emergency Room, the patient was somewhat pale, not jaundiced or cyanosed. No lymphadenopathy, no thyromegaly, no jugular venous distention. No lower limb edema. VITAL SIGNS: Her heart rate was 88, blood pressure was 91/44, her temperature was 98.9, respiratory rate was 33, and oxygen saturation was 95% on room air. HEAD, EYES, EARS, NOSE, AND THROAT: Showed normocephalic, atraumatic. NECK: Supple. HEART: Showed normal first and second heart sounds. No gallop or murmur. CHEST: Shows central trachea, equal bilateral chest expansion, air entry, vesicular breath sounds. I could not really appreciate any crepitation or rhonchi. ABDOMEN: Distended, soft, nontender. NEUROLOGIC: She was awake, alert, responding appropriately. Her cranial nerves are intact. She moves extremities without difficulty. She normally is able to ambulate without assistance or assistive devices. LABORATORY DATA: Her lab work on admission showed a white cell count of 9100, hemoglobin 12.8, hematocrit 39, MCV 82 and platelet count 230,000 with normal manual differential. Her serum sodium was 130, potassium was 4, chloride 95, bicarbonate 23, anion gap of 12, BUN 20, creatinine 1.1. Estimated GFR was 57 mL per minute. Her glucose 157, calcium was 8.3. Total bilirubin, AST, ALT were normal. Alkaline phosphatase slightly elevated. Troponin I high sensitivity was 15. Total protein was 6.4, albumin was 2.2 and serum lipase was 113. Her urinalysis showed the urine was yellow, cloudy with a pH of 7, specific gravity of 1.010. The urine was negative for protein, glucose, ketones, blood, and nitrite. There is a small amount of leukocyte esterase, 3-5 rbc's, 11-20 wbc's and many bacteria. Her influenza A and B were negative and SARS-CoV-2 antigen rapid testing was negative. CT scan of the head and cervical spine showed no abnormalities, and CT scan of the abdomen and pelvis again showed that there is mild atelectasis again seen in the left lower lobe, lung bases otherwise are clear. The liver and spleen are normal in configuration. There is still some low attenuation in the anterior upper aspect of the spleen, possibly indicating a small infarct. Evaluation of the solid organs is limited without IV contrast, no adjacent hemorrhage was seen. The kidneys show no apparent solid mass or obstruction. A cyst is posteriorly in the left kidney and there is also an adjacent calculus. No adrenal or pancreatic abnormality is seen. Extensive adenopathy is again demonstrated. There is no apparent free fluid in the abdomen. Images through the pelvis showed no apparent abnormality of the distal ureters. The bladder is now significantly distended. Enlarged pelvic and iliac lymph nodes are again shown. No new pelvic mass or free fluid is seen. Bone windows show no fracture or other acute abnormalities. ASSESSMENT AND PLAN: The patient was admitted, was continued on all her medications. She did receive vancomycin and a liter of normal saline, was diagnosed with a urinary tract infection, hypertension; however, she is borderline hypotensive and she also has hyperlipidemia, coronary artery disease status post percutaneous coronary intervention and stent deployment and history of lymphoma, followed by Dr. Louis, the oncologist at [facility]. Dictation Ends Here RAVEN/CORA KYLE: Bari TID: [id number]
[2021-10-29 19:00] VITALS: BP 135/77
[2021-10-29] MEDS: LACTOBACILLUS RHAMNOSUS GG 1 CAPSULE. PO SCH (20:39)
[2021-10-29] MEDS ORDERED: ATORVASTATIN CALCIUM 20 MG TABLET PO SCH (21:00)
[2021-10-30] VITALS (7 sets, daily range): BP systolic 133–145; BP diastolic 55–74
--- NOTE | 2021-10-30 07:16 | PN ---
DATE: 10/29/2021 SUBJECTIVE: The patient is resting almost flat in bed, in no apparent distress. She stated that she continued to have abdominal pain, although when I examined her, there was no evidence of tenderness or guarding. She has eaten her breakfast this morning, although the nurse does not know exactly how much she ate her lunch. She unfortunately spiking her temperature again up to 102.8. PHYSICAL EXAMINATION: GENERAL: When I examined her, she was resting flat in bed, in no apparent respiratory distress. She was pale, not jaundiced, cyanosed, no lymphadenopathy, no thyromegaly, no jugular venous distention. No limb edema. VITAL SIGNS: Her heart rate was 89, blood pressure is 134/69, temperature was 100.1 and actually earlier this morning was 102.8, her respiratory rate was 18 and oxygen saturation was 97%. HEAD, EYES, EARS, NOSE, AND THROAT: Normocephalic, atraumatic. NECK: Supple. HEART: Normal first and second heart sounds, no gallop or murmur. CHEST: Shows central trachea, equal bilateral chest expansion, air entry, vesicular breath sounds. No crepitation or rhonchi. ABDOMEN: Distended, soft, nontender. NEUROLOGIC: She was awake, alert, responding appropriately. All cranial nerves intact. She moves extremities without difficulty. Her intake and output were incompletely recorded. LABORATORY DATA: This morning showed a white cell count of 8,900, hemoglobin 11.7, hematocrit 36, MCV 82 and platelet count 245,000. Her chemistry showed a serum sodium 135, potassium was 3.9, chloride 97, bicarbonate 26, anion gap of 12, BUN 19, creatinine 0.9. Estimated GFR was 72 mL per minute. Her glucose was 100, calcium was 7.8. Total bilirubin is normal. AST, ALT, alkaline phosphatase are elevated. Total protein was 5.4, albumin was 2.1. Her blood cultures done 5 days ago and her urine culture done. ASSESSMENT: In summary, this is an 81-year-old female patient who came in with generalized weakness. She is moaning and groaning. She apparently has what seemed to be a syncopal episode after having a bowel movement and complaining of generalized abdominal pain. She had a CT scan done on 10/25 and 10/28 showed generalized lymphadenopathy. She is known to have history of lymphoma diagnosed 2 years ago by lymph node biopsy of the cervical lymph nodes by Dr. Louis; however, she has never been on any chemotherapy. She was treated for pneumonia on 10/25, however, her symptoms had not really resolved and her chest x-ray or at least the lower lungs on the CT scan of the abdomen showed no evidence of any infiltrate. She does have evidence of urinary tract infection despite treatment with multiple antibiotic including the amoxicillin and Augmentin and now the IV ceftriaxone, she continued to spike her temperature. PLAN: My plan is to repeat her blood culture if it was not done and continue with IV ceftriaxone. I will check also her serum LDH as well as C-reactive protein and sed rate, and I will attempt to contact Dr. Louis to see if he has any other recommendation. At this point, could be type B symptoms for lymphoma. FLORINDA/SHARRI DR: Bari TID: [id number]
[2021-10-30 07:57] LABS: ALBUMIN/GLOBULIN RATIO 0.7 (1.0-1.7); C REACTIVE PROTEIN 190.8 mg/L (0-3.3); CALCIUM 7.9 mg/dL (8.5-10.1); CREATININE 0.6 mg/dL (0.6-1.0); GFR 115.8; POTASSIUM 4.1 mmol/L (3.5-5.1); TOTAL BILIRUBIN 0.9 mg/dL (0.2-1.0)
[2021-10-30] MEDS: CITALOPRAM 20 MG TABLET. PO SCH (08:21)
[2021-10-30] MEDS: CARVEDILOL 12.5 MG TABLET PO SCH ×2 (08:21→16:17)
[2021-10-30] MEDS: LACTOBACILLUS RHAMNOSUS GG 1 CAPSULE. PO SCH ×2 (08:21→21:18)
[2021-10-30] MEDS: PANTOPRAZOLE 40 MG TABLET. PO SCH (08:21)
[2021-10-30] MEDS ORDERED: LISINOPRIL 10 MG TABLET PO SCH (09:00)
[2021-10-30] MEDS ORDERED: ONDANSETRON PF 4 MG/2 ML VIAL. IVP PRN (10:45)
[2021-10-30] MEDS: ACETAMINOPHEN 325 MG TABLET PO PRN ×2 (11:05→21:18)
--- NOTE | 2021-10-30 11:32 | NUR ---
SPOKE WITH PT DAUGHTERJOSEFA TWICE THIS MORNING. THE FIRST TIME, DAUGHTER CALLED AND SAID "MY MOM CALLED ME AND SAID SHE HAD AN ACCIDENT AND IT IS BURNING HER, YOU NEED TO GET IN THERE AND CLEAN HER UP. I WILL BE ON THE PHONE WITH HER WHEN YOU GET IN THERE." PT EDUCATED TO USE THE NURSE CALL LIGHT, IT WILL BE QUICKER TO TEND TO HER NEEDS. PT HAD A FEVER AND RECEIVED TYLENOL. PT ALSO STARTED VOMITING, SO RECEIVED ZOFRAN. PT STATES SHE FEELS BETTER NOW. PT SEEN BY PT/OT THIS MORNING AND ABLE TO GET UP TO THE CHAIR WITH STAFF ASSISTANCE.
[2021-10-30] MEDS: ENOXAPARIN 40 MG/0.4 ML SYRINGE. SQ SCH (14:38)
[2021-10-30] MEDS: AZITHROMYCIN 500 MG in IV NORMAL SALINE 250ML 250 ML IV SCH (14:38)
[2021-10-30] MEDS: DEXAMETHASONE SOD PHOS 10 MG/ML VIAL. IV SCH (14:39)
--- NOTE | 2021-10-30 22:33 | PN ---
DATE: 10/30/2021 SUBJECTIVE: The patient continues to complain of nausea, vomiting, abdominal pain and is spiking her temperature. She was originally admitted for possible urinary tract infection; however, she turned out to be positive for coronavirus PCR. She received only one shot of COVID. She does not know whether it was Pfizer or Moderna. She was originally seen in the Emergency Room for possible pneumonia, treated with antibiotics. She continued to do poorly and therefore she came back again and this time, she was started on ceftriaxone for possible UTI. Initial evaluation showed that her SARS-CoV-2 antigens rapid testing was negative; however, her PCR was positive and she was diagnosed with non-Hodgkin lymphoma with a biopsy done about [address] Louis and she has extensive lymphadenopathy in the abdomen and pelvis and in the cervical area. I did actually attempted to contact Dr. Louis to see whether this might represent type B symptoms; however, the fact that she was SARS-CoV-2 PCR, explains all her symptoms and therefore, we will start her on Zithromax as well as dexamethasone, Lovenox as well as remdesivir. When I questioned her this afternoon, she continues with generalized diffuse abdominal pain, has had nausea and vomiting. PHYSICAL EXAMINATION: GENERAL: When I examined her, she was pale, but not jaundiced or cyanosed, no lymphadenopathy, no thyromegaly, no jugular venous distention. No limb edema. VITAL SIGNS: His heart rate was 89, blood pressure was 136/69, temperature was 101.8, respiratory rate was 18 and oxygen saturation was 94% on 1.5 liters of oxygen. HEAD, EYES, EARS, NOSE, AND THROAT: Normocephalic, atraumatic. NECK: Supple. HEART: Normal first and second heart sounds. No gallop, rub or murmur. CHEST: Showed central trachea, equal bilateral chest expansion, air entry, vesicular breath sounds. I could not appreciate any crepitation or rhonchi. ABDOMEN: Slightly distended, soft. All hernial orifice intact. Bowel sounds normal. NEUROLOGIC: She was grossly intact. Her intake was 1440, no output was recorded. LABORATORY DATA: This morning showed a white cell count of 8,900, hemoglobin was 11.7, hematocrit 36, MCV 82 and platelet count of 245,000. Her sedimentation rate was 65 mm per hour. Her serum sodium this morning was 134, potassium 4.1, chloride 97, bicarbonate 27, anion gap of 10, BUN 15, creatinine 0.6. Estimated GFR was 115 mL per minute. Her glucose 105, calcium was 7.9. Total bilirubin is normal. AST, ALT, alkaline phosphatase were elevated. Her lactic acid was high also at 334. Her C-reactive protein was 190 mg/dL, total protein 5, albumin was 2. ASSESSMENT: Acute COVID-19 infection manifested mostly with GI symptoms. She is actually maintaining her oxygen saturation at 96% on room air. PLAN: My plan is to add Zithromax as well as remdesivir, dexamethasone, Lovenox as well as zinc sulfate and vitamin C. FLORINDA DR: Bari TID: [id number]
[2021-10-31 05:00] VITALS: BP 151/79
[2021-10-31] MEDS: ZINC SULFATE 220 MG CAPSULE. PO SCH (08:42)
[2021-10-31] MEDS: PANTOPRAZOLE 40 MG TABLET. PO SCH (08:42)
[2021-10-31] MEDS: ASCORBIC ACID 1,000 MG TABLET PO SCH (08:42)
[2021-10-31] MEDS: CITALOPRAM 20 MG TABLET. PO SCH (08:42)
[2021-10-31] MEDS: LACTOBACILLUS RHAMNOSUS GG 1 CAPSULE. PO SCH ×2 (08:42→20:17)
[2021-10-31] MEDS: CARVEDILOL 12.5 MG TABLET PO SCH ×2 (08:43→16:14)
[2021-10-31] MEDS: DEXAMETHASONE SOD PHOS 10 MG/ML VIAL. IV SCH (08:43)
[2021-10-31] MEDS: AZITHROMYCIN 500 MG in IV NORMAL SALINE 250ML 250 ML IV SCH (08:44)
[2021-10-31 11:46] VITALS: BP 138/66
--- NOTE | 2021-10-31 13:35 | PN ---
DATE: 10/31/2021 ATTENDING PHYSICIAN: Dr. Almanza. SUBJECTIVE: Still nauseated, not much appetite. OBJECTIVE FINDINGS: VITAL SIGNS: Blood pressure this morning is 151/79 mmHg, pulse is 76 and regular. She is afebrile. Oxygen saturation 96% on 2 liters. HEENT: Head is without trauma. Pupils are reactive. Sclerae nonicteric. Oropharynx is clear. NECK: Supple, no bruits. LUNGS: Good breath sounds. CARDIOVASCULAR: Showed regular heart tones. ABDOMEN: Soft. EXTREMITIES: Without edema. NEUROLOGIC: Focally intact. Speech is fluent. LABORATORY DATA: Last potassium yesterday was 4.1 mEq, creatinine is 0.6 mg/dL. ASSESSMENT: 1. An 81-year-old female with COVID-19 pneumonia. Minimal symptoms. 2. COVID associated gastroenteritis. 3. Mild dehydration. 4. History of lymphoma. PLAN: 1. Finish remdesivir course. 2. Continue dexamethasone. 3. Advance diet as tolerated. 4. Discontinue IV fluids. ТАТЬЯНА/LUPE DR: ТАТЬЯНА/dotty TID: [id number]
[2021-10-31] MEDS: ENOXAPARIN 40 MG/0.4 ML SYRINGE. SQ SCH (16:06)
[2021-10-31 16:37] VITALS: BP 144/78
[2021-10-31] MEDS: ACETAMINOPHEN 325 MG TABLET PO PRN (20:17)
[2021-10-31 20:35] VITALS: BP 129/65
[2021-10-31 23:55] VITALS: BP 130/76
[2021-11-01 06:12] VITALS: BP 148/79
[2021-11-01] MEDS: LACTOBACILLUS RHAMNOSUS GG 1 CAPSULE. PO SCH ×2 (07:53→20:23)
[2021-11-01] MEDS: ZINC SULFATE 220 MG CAPSULE. PO SCH (07:53)
[2021-11-01] MEDS: PANTOPRAZOLE 40 MG TABLET. PO SCH (07:53)
[2021-11-01] MEDS: ASCORBIC ACID 1,000 MG TABLET PO SCH (07:53)
[2021-11-01] MEDS: CITALOPRAM 20 MG TABLET. PO SCH (07:54)
[2021-11-01] MEDS: DEXAMETHASONE SOD PHOS 10 MG/ML VIAL. IV SCH (07:54)
[2021-11-01] MEDS: CARVEDILOL 12.5 MG TABLET PO SCH ×2 (07:54→17:09)
[2021-11-01] MEDS: AZITHROMYCIN 500 MG in IV NORMAL SALINE 250ML 250 ML IV SCH (08:59)
--- NOTE | 2021-11-01 10:46 | NUR ---
NURSE NOTE MORNING ASSESSMENT DONE AND MEDICATIONS PASSED. PT IS A&OX4 BUT FORGETFUL. PT STATES LESS PAIN THAN YESTERDAY IN ABDOMINAL AREA AND STATES "I AM GETTING BETTER". PT ATE BREAKFAST AND TOLERATED WELL. PT HAS BEEN COOPERATIVE WITH NURSING CARE AND MEDS. ALL NEEDS MET AT THIS TIME.
[2021-11-01 11:04] VITALS: BP 120/69
--- NOTE | 2021-11-01 14:10 | NUR ---
NURSE NOTE PT [facility] D/C PER MD ORDER. PT LAYING IN BED ON PHONE WITH FAMILY. PT DENIES ANY PAIN. A&OX4. ALL NEEDS MET AT THIS TIME.
[2021-11-01] MEDS: ENOXAPARIN 40 MG/0.4 ML SYRINGE. SQ SCH (14:30)
[2021-11-01 15:25] VITALS: BP 142/86
[2021-11-01 15:58] VITALS: BP 144/76
[2021-11-01 19:00] VITALS: BP 134/71
--- NOTE | 2021-11-01 21:37 | PN ---
DATE: 11/01/2021 ATTENDING PHYSICIANS: Dr. Almanza and Dr. Peña. SUBJECTIVE: Feeling better. Appetite is improved. Nausea resolved. OBJECTIVE FINDINGS: VITAL SIGNS: Blood pressure this morning is 120/69, pulse is 85 and regular. She is afebrile. Oxygen saturation 94% on room air. HEENT: Head is without trauma. Pupils are reactive. Sclerae nonicteric. Oropharynx clear. NECK: Supple. LUNGS: Clear with good breath sounds. CARDIOVASCULAR: Regular heart tones. ABDOMEN: Soft. EXTREMITIES: Without edema. NEUROLOGIC: Focally intact. ASSESSMENT: 1. An 81-year-old female with COVID-19 pneumonia. Symptoms have improved. 2. COVID associated gastroenteritis, resolved. 3. Mild dehydration. 4. History of lymphoma. PLAN: 1. Continue Decadron as ordered. 2. Diet is advanced. 3. Discontinue Pa catheter. 4. Discontinue IV fluids. 5. Tentative discharge plans for home in the morning. RACHNA DR: Ida TID: [id number] CC: MIROSLAVA AUSTIN
[2021-11-01 23:00] VITALS: BP 137/93
[2021-11-02 05:00] VITALS: BP 141/70
[2021-11-02] MEDS: AZITHROMYCIN 500 MG in IV NORMAL SALINE 250ML 250 ML IV SCH (08:02)
[2021-11-02] MEDS: LACTOBACILLUS RHAMNOSUS GG 1 CAPSULE. PO SCH (08:04)
[2021-11-02] MEDS: PANTOPRAZOLE 40 MG TABLET. PO SCH (08:04)
[2021-11-02] MEDS: ASCORBIC ACID 1,000 MG TABLET PO SCH (08:05)
[2021-11-02] MEDS: ZINC SULFATE 220 MG CAPSULE. PO SCH (08:05)
[2021-11-02] MEDS: CITALOPRAM 20 MG TABLET. PO SCH (08:05)
[2021-11-02] MEDS: CARVEDILOL 12.5 MG TABLET PO SCH (08:05)
[2021-11-02] MEDS: DEXAMETHASONE SOD PHOS 10 MG/ML VIAL. IV SCH (08:06)
[2021-11-02] MEDS ORDERED: FLU VACC QUAD 21-22 (6MOS+) PF 0.5 ML SYRINGE. VAX IM ONE (09:00)
--- NOTE | 2021-11-02 10:24 | NUR ---
Nursing note PT in restroom with the assistance of the RESOURCE MANAGEMENT SPECIALIST. Assisted back to bed with the aid of the nurse and RESOURCE MANAGEMENT SPECIALIST. PT verbalized weakness. PT repositioned in bed head of bed elevated. Morning assessments done and medications administered per doctors orders. PT verbalized she will try to eat some breakfast when she is ready. Bed low call light within reach, PT verbalized no other needs. Will continue to monitor.
--- NOTE | 2021-11-02 10:33 | NUR ---
Nursing notes PT in bed, called the nurse using the call light, SENIOR TAX MANAGER responded to the call and PT stated to the SENIOR TAX MANAGER "I need the nurse". PT reported she has difficulty breathing, Pulse oximetry assessed by the nurse and PT Oxygen saturation was 94 on room air, head of bed elevated and PT stated she feels better. PT had taken out her IV and stated "I felt uncomfortable and decided to take it of". Bed low, call light within reach. Pt verbalized no other needs, will continue to monitor.
[2021-11-02 10:59] VITALS: BP 115/70
--- NOTE | 2021-11-02 12:51 | NUR ---
Nursing note PT in bed told she is being discharged home with medications. Discharge orders put in by the doctor, discharge assessments done and documented. PT stable during discharge, PT daughter notified her mum will be discharged and for her to come pick her up. PT daughter stated she will be at the hospital in an hour to warehouse order picker her mother. PT assisted with dress change by the BI SOLUTIONS ARCHITECT, discharge papers printed, and written prescription from doctor handed to PT daughter. PT told to warehouse order picker prescription at the pharmacy and continue medications as doctor ordered. PT assisted of the floor by the nurse with a wheel chair and picked up from the facility by her daughter to go home.
--- NOTE | 2021-11-02 20:54 | DS ---
DATE OF DISCHARGE: 11/02/2021 ATTENDING PHYSICIAN: Dr. Almanza and Dr. Peña. FINAL DISCHARGE DIAGNOSES: 1. COVID-19 pneumonia, resolved. 2. COVID associated gastroenteritis, resolved. 3. Mild dehydration, rehydrated. 4. History of lymphoma. 5. Mild dementia. HISTORY AND PHYSICAL: The patient is a pleasant 81-year-old female cared for by her daughter at home. She was admitted with GI symptoms, dehydration and positive COVID test. PHYSICAL EXAMINATION: Please see the dictated note. PERTINENT LABORATORY AND X-RAY STUDIES: Admission hemoglobin was 12.8 g/dL, white count was 9100. Chemistry panel showed stable BUN, creatinine electrolytes. Creatinine was stable at 1.1 on admission, repeated was down to 0.6 mg/dL. Potassium was 4.1 mEq. Transaminases slightly elevated. COURSE IN HOSPITAL: The patient was admitted. She received 5 full days of intravenous antibiotics, corticosteroids and supplemental oxygen weaned off and she had adequate oxygen saturation on room air. Followup chemistries unremarkable and she did well. Diet was advanced. On the fifth hospital day, arrangements were made for her daughter to take her home. She is still under COVID precautions with quarantine for another 10 days. I recommended 7 more days of cephalexin 500 mg p.o. t.i.d. and basically continuation of her home meds, which include the following: She should continue her Coreg 12.5 b.i.d., Keflex 500 mg p.o. t.i.d., lisinopril, ondansetron, and Protonix and calcium dose is unchanged. She was discharged there from our hospital in stable condition with explicit drug and followup care. ROCÍO DR: ТАТЬЯНА/dotty TID: [id number] CC: Naga Keenan MD
== END 2021-11-02 12:59 | disposition home health service (06) | DRG 177 ==
LOC: ER 12:45 → ER HOLD 15:47 → 1 SOUTH 20:43
PROVIDERS: ADMIT Internal Medicine; ATTEND Internal Medicine
DX: U07.1 COVID-19 (principal); J12.82 Pneumonia due to coronavirus disease 2019; E87.1 Hypo-osmolality and hyponatremia; C85.90 Non-Hodgkin lymphoma, unspecified, unspecified site; N30.00 Acute cystitis without hematuria; A08.39 Other viral enteritis; E78.00 Pure hypercholesterolemia, unspecified; E78.5 Hyperlipidemia, unspecified; E86.0 Dehydration; E88.09 Other disorders of plasma-protein metabolism, not elsewhere classified; F03.90 Unspecified dementia, unspecified severity, without behavioral disturbance, psychotic disturbance, mood disturbance, and anxiety; I95.9 Hypotension, unspecified; I10 Essential (primary) hypertension; I25.10 Atherosclerotic heart disease of native coronary artery without angina pectoris; N28.9 Disorder of kidney and ureter, unspecified; Z87.442 Personal history of urinary calculi; Z95.5 Presence of coronary angioplasty implant and graft
CPT/HCPCS: 36415; 70450; 72125; 74176; 80048; 80053; 81001; 83615; 83690; 84484; 85025; 85651; 86140; 87040; 87086; 87428; 90471; 90686; 93005; 96361; 96365; 96375; J0456; J0696; J1100; J1200; J1650; J2405; J3010; J7050; U0003; 97530; 99285-25; J7030